=== PATIENT | male | born 1990 | race African-American/Black ===

== ENCOUNTER 2017-12-05 20:35 | Emergency (ER) | payer SELFPAY ==
[~2017-12-05] VITALS: Ht 188 cm; Wt 105.0 kg
[2017-12-05 20:37] VITALS: BP 166/94; PULSE 80; RESP 16; TEMP 97.8; O2SAT 100
[2017-12-05] MEDS ORDERED: SODIUM CHLOR 0.9% 1000 ML INJ 1,000 ML IV ONE ×2 (21:15)
[2017-12-05 21:26] LABS: AUTOMATED NEUTROPHIL # 1.6 TH/MM3 (1.8-7.7); BASOPHIL % 0.4 % (0.0-2.0); EOSINOPHIL # 0.1 TH/MM3 (0-0.4); EOSINOPHIL % 0.9 % (0.0-4.0); HEMATOCRIT 43.2 % (39.0-51.0); HEMOGLOBIN 15.4 GM/DL (13.0-17.0); LYMPHOCYTE # 3.3 TH/MM3 (1.0-4.8); MEAN CELL VOLUME 89.3 FL (80.0-100.0); MEAN CORPUSCULAR HEMOGLOBIN 31.8 PG (27.0-34.0); MEAN CORPUSCULAR HGB CONC 35.6 % (32.0-36.0); MEAN PLATELET VOLUME 9.3 FL (7.0-11.0); MONO % 10.3 % (0.0-8.0); MONOCYTE # 0.6 TH/MM3 (0-0.9); NEUT % 28.4 % (16.0-70.0); PLATELET COUNT 280 TH/MM3 (150-450); RED BLOOD COUNT 4.84 MIL/MM3 (4.50-5.90); RED CELL DISTRIBUTION WIDTH 14.7 % (11.6-17.2); WHITE BLOOD COUNT 5.6 TH/MM3 (4.0-11.0)
--- NOTE | 2017-12-05 21:27 | PD ---
HPI Chief Complaint: Dizziness Time Seen by Provider: 20:52 Travel History International Travel<30 days: No Contact w/Intl Traveler<30days: No Traveled to known affect area: No History of Present Illness HPI Is a 27-year-old man presents emerged from complaining that he gets lightheaded dizzy and weak anytime he goes in the center she. Is been ongoing problem since he was young but has been worse since he is gotten older. States he came today because he felt too weak to continue riding his bike to work. States he tries to drink Gatorade but they get sick and throws it up. No acute change recently. He does have some dark-colored no family history of significant medical problems. Patient only medical history is asthma. History Past Medical History Narrative Medical Asthma Tetanus Vaccination: > 5 Years Influenza Vaccination: No Social History Alcohol Use: No Tobacco Use: Yes (2 CIG /DAY) Allergies-Medications (Allergen,Severity, Reaction): Coded Allergies: No Known Allergies (Verified Adverse Reaction, Unknown, 12/05/17) Reported Meds & Prescriptions Reported Meds & Active Scripts Active No Active Prescriptions or Reported Medications Review of Systems Except as stated in HPI: all other systems reviewed are Neg Physical Exam Narrative GENERAL: Well-appearing 27-year-old man, no acute distress. SKIN: Focused skin assessment warm/dry. HEAD: Atraumatic. Normocephalic. EYES: Pupils equal and round. No scleral icterus. No injection or drainage. ENT: No nasal bleeding or discharge. Mucous membranes pink and moist. NECK: Trachea midline. No JVD. CARDIOVASCULAR: Regular rate and rhythm. No murmur appreciated. RESPIRATORY: No accessory muscle use. Clear to auscultation. Breath sounds equal bilaterally. GASTROINTESTINAL: Abdomen soft, non-tender, nondistended. Hepatic and splenic margins not palpable. MUSCULOSKELETAL: No obvious deformities. No clubbing. No cyanosis. No edema. NEUROLOGICAL: Awake and alert. No obvious cranial nerve deficits. Motor grossly within normal limits. Normal speech. PSYCHIATRIC: Appropriate mood and affect; insight and judgment normal. Data Data Last Documented VS Vital Signs Date Time Temp Pulse Resp B/P (MAP) Pulse Ox O2 Delivery O2 Flow Rate FiO2 12/05/17 20:37 97.8 80 16 166/94 (118) 100 Orders Orders Complete Blood Count With Diff (12/05/17 21:01) Comprehensive Metabolic Panel (12/05/17 21:01) Creatine Kinase (Cpk) (12/05/17 21:01) Urinalysis - C+S If Indicated (12/05/17 21:01) Iv Access Insert/Monitor (12/05/17 21:01) Sodium Chlor 0.9% 1000 Ml Inj (Ns 1000 M (12/05/17 21:15) Sodium Chlor 0.9% 1000 Ml Inj (Ns 1000 M (12/05/17 21:15) CKMB (12/05/17 21:00) CKMB% (12/05/17 21:00) Labs Laboratory Tests Test 12/05/17 21:00 White Blood Count 5.6 TH/MM3 Red Blood Count 4.84 MIL/MM3 Hemoglobin 15.4 GM/DL Hematocrit 43.2 % Mean Corpuscular Volume 89.3 FL Mean Corpuscular Hemoglobin 31.8 PG Mean Corpuscular Hemoglobin Concent 35.6 % Red Cell Distribution Width 14.7 % Platelet Count 280 TH/MM3 Mean Platelet Volume 9.3 FL Neutrophils (%) (Auto) 28.4 % Lymphocytes (%) (Auto) 60.0 % Monocytes (%) (Auto) 10.3 % Eosinophils (%) (Auto) 0.9 % Basophils (%) (Auto) 0.4 % Neutrophils # (Auto) 1.6 TH/MM3 Lymphocytes # (Auto) 3.3 TH/MM3 Monocytes # (Auto) 0.6 TH/MM3 Eosinophils # (Auto) 0.1 TH/MM3 Basophils # (Auto) 0.0 TH/MM3 CBC Comment AUTO DIFF Differential Comment AUTO DIFF CONFIRMED Urine Color [place]ita Urine Turbidity HAZY Urine pH 6.0 Urine Specific [place] 1.034 Urine Protein 30 mg/dL Urine Glucose (UA) NEG mg/dL Urine Ketones TRACE mg/dL Urine Occult Blood NEG Urine Nitrite NEG Urine Bilirubin NEG Urine Urobilinogen 4.0 OR GREATER mg/dL Urine Leukocyte Esterase NEG Urine RBC 1 /hpf Urine WBC 1 /hpf Urine Squamous Epithelial Cells <1 /hpf Urine Mucus MANY /lpf Urine Sperm RARE Microscopic Urinalysis Comment CULT NOT INDICATED Blood Urea Nitrogen 12 MG/DL Creatinine 0.92 MG/DL Random Glucose 84 MG/DL Total Protein 8.7 GM/DL Albumin 4.1 GM/DL Calcium Level 9.5 MG/DL Alkaline Phosphatase 120 U/L Aspartate Amino Transf (AST/SGOT) 31 U/L Alanine Aminotransferase (ALT/SGPT) 39 U/L Total Bilirubin 0.5 MG/DL Sodium Level 139 MEQ/L Potassium Level 3.7 MEQ/L Chloride Level 105 MEQ/L Carbon Dioxide Level 22.5 MEQ/L Anion Gap 12 MEQ/L Estimat Glomerular Filtration Rate 121 ML/MIN Total Creatine Kinase 363 U/L Creatine Kinase MB 3.1 NG/ML Creatine Kinase MB % 0.9 % MDM Medical Decision Making Medical Screen Exam Complete: Yes Emergency Medical Condition: Yes Interpretation(s) LABS: CBC is unremarkable. CPK minimally elevated. UA is concentrated. Differential Diagnosis Heat exhaustion, dehydration, rhabdomyolysis, metabolic disorder, other Narrative Course Medical decision making 27-year-old man who presents to the emergency department complaining of weakness , especially with the heat. Likely this is dehydration. Some dark colored urine. We will check a CPK. Some kind of metabolic disorder and border metabolism seems unlikely. We will give some IV fluids. Reassess. Diagnosis Primary Impression: Heat exhaustion Additional Impression: Dehydration Additional Instructions: Drink plenty fluids stay well-hydrated. Avoid overexertion in the heat. Return to the emergency department for any new or worsening symptoms. Med/Other Pt SpecificInfo: No Change to Meds Scripts No Active Prescriptions or Reported Meds Disposition: 01 DISCHARGE HOME Condition: Stable Robert Mckenna MD Dec 05, 2017 21:27
[2017-12-05 21:40] LABS: ALBUMIN 4.1 GM/DL (3.4-5.0); ALT (GPT) 39 U/L (12-78); AST (GOT) 31 U/L (15-37); BICARBONATE 22.5 MEQ/L (21.0-32.0); BLOOD UREA NITROGEN 12 MG/DL (7-18); CALCIUM 9.5 MG/DL (8.5-10.1); CHLORIDE 105 MEQ/L (98-107); CREATININE 0.92 MG/DL (0.60-1.30); GLOMERULAR FILTRATION RATE 121 ML/MIN (>89); GLUCOSE,RANDOM 84 MG/DL (74-106); SODIUM (NA) 139 MEQ/L (136-145)
[2017-12-05 21:43] LABS: ALKALINE PHOSPHATASE 120 U/L (45-117); TOTAL BILIRUBIN ADULT 0.5 MG/DL (0.2-1.0); TOTAL PROTEIN 8.7 GM/DL (6.4-8.2)
[2017-12-05 21:56] LABS: BILIRUBIN, URINE NEG (NEG); BLOOD, URINE NEG (NEG); GLUCOSE,URINE NEG (NEG); KETONE, URINE TRACE mg/dL (NEG); MUCUS URINE MANY /lpf (OCC); NITRITE,URINE NEG (NEG); SPERM, URINE RARE; SQUAMOUS EPITHELIAL CELL URINE <1 /hpf (0-5); URINE COLOR Amber (YELLW/STRAW); URINE LEUKOCYTE ESTERASE NEG (NEG)
== END 2017-12-05 23:15 | disposition home or self-care (01) ==
LOC: NEPE 20:35
DX: T67.5XXA Heat exhaustion, unspecified, initial encounter (principal); E86.0 Dehydration; R53.1 Weakness; R82.99 Other abnormal findings in urine; Z72.0 Tobacco use; Z87.09 Personal history of other diseases of the respiratory system; X30.XXXA Exposure to excessive natural heat, initial encounter
CPT/HCPCS: 80053; 81001; 82550; 82552; 85025; 99284; J7030

== ENCOUNTER 2018-04-18 00:48 | Inpatient (IN) ==
[2018-04-18] MEDS ORDERED: Vancomycin Inj 2,000 MG in Sodium Chlor 0.9% Inj 500 ML IV.SIG ONE (01:01)
[2018-04-18] MEDS ORDERED: Tetanus/Diphtheria Toxoid Adult Vaccine Inj 0.5 ML Vial IM ONE (01:01)
[2018-04-18] MEDS ORDERED: Sod Chloride 0.9% Inj 1,000 ML IV.SIG SCH (01:15)
[2018-04-18] MEDS ORDERED: Piperacil/Tazo 4.5 GM Premix 4.5 GM/100 ML BAG IV.SIG SCH (01:15)
[2018-04-18 01:29] LABS: Baso % (Auto) 0.3 % (0.0-2.0); Eos # (Auto) 0.1 th/mm3 (0.0-0.4); Eos % (Auto) 1.2 % (0.0-4.0); Hematocrit 41.9 % (39.0-51.0); Hemoglobin 14.1 gm/dL (13.0-17.0); Lymph # (Auto) 3.8 th/mm3 (1.0-4.8); Lymph % (Auto) 56.3 % (9.0-44.0); Mean Corpuscular HGB Conc 33.7 % (32.0-36.0); Mean Corpuscular Hemoglobin 30.6 pg (27.0-34.0); Mean Corpuscular Volume 90.8 fL (80.0-100.0); Mean Platelet Volume 8.2 fL (7.0-11.0); Mono # (Auto) 0.6 th/mm3 (0.0-0.9); Mono % (Auto) 8.5 % (0.0-8.0); Neut # (Auto) 2.3 th/mm3 (1.8-7.7); Neut % (Auto) 33.7 % (16.0-70.0); Platelet Count 308 th/mm3 (150-450); Red Blood Count 4.61 mil/mm3 (4.50-5.90); Red Cell Distribution Width 14.5 % (11.6-17.2); White Blood Count 6.7 th/mm3 (4.0-11.0)
[2018-04-18 01:41] LABS: Anion Gap 8 meq/L (5-15); Blood Urea Nitrogen 9 mg/dL (7-18); Calcium 8.6 mg/dL (8.5-10.1); Carbon Dioxide 26.4 meq/L (21.0-32.0); Chloride 107 meq/L (98-107); Glomerular Filtration Rate Greater Than 89 mL/min (>89); Glucose,Random 95 mg/dL (74-106); Potassium 3.9 meq/L (3.5-5.1); Sodium 141 meq/L (136-145)
--- NOTE | 2018-04-18 01:49 | XR ---
EXAM DATE: 04/18/2018 1:41 AM EST AGE/SEX: 27 years / Male INDICATIONS: Left hand, third digit pain after cutting finger two weeks ago. Redness and inflammatio n are present. CLINICAL DATA: This is the patient's initial encounter. Patient reports that signs and symptoms have been present for 2 weeks and indicates a pain score of 7/10. MEDICAL/SURGICAL HISTORY: . Smoker. None. COMPARISON: [facility]PO, HAND LEFT COMPLETE ([id number]), 06/29/2015. . FINDINGS: There is permeative destructive change involving the distal aspect of the third finger middle phalanx most consistent with osteomyelitis. There is diffuse soft tissue swelling involving the finger. CONCLUSION: Osteomyelitis involving the third finger middle phalanx Electronically signed by: Rufino Martinez MD 04/18/2018 1:47 AM EST
[2018-04-18] MEDS ORDERED: Vancomycin Consult Pharmacy OTHER PRN (01:52)
[2018-04-18] MEDS ORDERED: Bisacodyl 10 MG Supp RECTAL PRN (01:52)
--- NOTE | 2018-04-18 01:55 | ED ---
HPI General Chief Complaint: Extremity Injury, Upper Stated Complaint: finger complaint Time Seen by Provider: 04/18/18 00:58 Source: patient Mode of arrival: ambulatory Limitations: no limitations History of Present Illness HPI narrative: 27-year-old right-hand dominant black male presents emergency department with complaints of an infection of his left middle finger after cutting it with a knife 2 weeks ago. He states he was using a knife to cut with and accidentally cut the top of his finger. He was unable to extend his finger at the DIP joint. The wound healed over and he continued unable to list of his finger. Over the last week it has become strongly painful, red, swollen and started draining pus out of the wound. Patient has not had a tetanus shot over 5 years. He denies any loss of sensation. He denies any fever or chills. No nausea or vomiting. Exacerbated by his wound. No alleviating factors. Related Data Home Medications Medication Instructions Recorded Confirmed No Known Home Medications 04/18/18 04/18/18 Allergies Allergy/AdvReac Type Severity Reaction Status Date / Time No Known Allergies Allergy Verified 04/18/18 00:50 Review of Systems ROS: all other systems reviewed are negative [facility] Medical History Medical History Patient denies medical problems (Acute) Surgical History Surgical History History of arthroplasty of right ankle (Acute) History of right knee surgery (Acute) Family History Family History Father Cancer Mother Medication overdose Social History Social History Substance History: No History of Abuse Second Hand Smoke Exposure: Yes Smoking Status: Former smoker Tobacco Type: Cigarettes How Often Do You Have a Drink Containing Alcohol: Monthly or less Recent Travel in [facility] within the Last 8 Weeks: No Recent Out of Country Travel within the Last 8 Weeks: No Immunization History Tetanus Immunization: Unsure Exam Narrative Exam Narrative: GENERAL: Well-developed, well-nourished in no apparent distress. Nontoxic appearing. HEAD: Normocephalic, atraumatic. EYES: Pupils equal round and reactive. Extraocular motions intact. No scleral icterus. No injection or drainage. ENT: Nose clear. Throat without erythema, tonsillar hypertrophy or exudate. Uvula midline. Airway patent. NECK: Trachea midline. Supple, nontender, moves head freely. No central bony tenderness or spasm. CARDIOVASCULAR: Regular rate and rhythm without murmurs, gallops, or rubs. RESPIRATORY: Clear to auscultation. Breath sounds equal bilaterally. No wheezes , rales, or rhonchi. GASTROINTESTINAL: Abdomen soft, non-tender, nondistended. No hepato-splenomegaly , or palpable masses. No guarding. EXTREMITIES: Examination of the left hand reveals swelling from the mid phalanx down into the distal phalanx with a laceration over the dorsum of the DIP joint. There is purulent pus draining. The finger is erythematous warm and tender. He has a mallet deformity unable to extend at the DIP. He has intact sensation with intact cap refill. No pain or swelling at the MCP or MCP. Radial head is unremarkable. The right upper extremity as well as lower extremities are unremarkable. BACK: Nontender without deformity. No flank tenderness. NEUROLOGICAL: Awake, alert and oriented x 3 .Cranial nerves grossly intact. Motor and sensory grossly within normal limits. Normal speech. Course Initial Documented Vital Signs Temperature 98.4 F 04/18/18 00:50 Pulse Rate 65 04/18/18 00:50 Respiratory Rate 16 04/18/18 00:50 Blood Pressure 137/78 04/18/18 00:50 Pulse Oximetry 99 04/18/18 00:50 Last Documented Vital Signs Temperature 96.5 F L 04/18/18 14:15 Pulse Rate 54 L 04/18/18 18:10 Respiratory Rate 16 04/18/18 18:10 Blood Pressure 122/61 04/18/18 18:10 Pulse Oximetry 100 04/18/18 18:10 Medical Decision Making MDM Narrative Medical decision making narrative: IV access is obtained. Patient is given tetanus immunization. Liter bolus of normal saline. Vancomycin 2 g IV, and Zosyn 4.5 g IV. X-ray of the finger. Laboratory tests are reviewed. X-rays show bony erosion from a septic joint. I have spoke with Dr. Singh who is agreed to admit the patient. I have contacted Dr. Montiel in regards to this patient's admission for his consult. Medical Screen Exam Complete: Yes Emergency Medical Condition: Yes Differential Diagnosis Differential Diagnosis: MDM: High Differential diagnoses: Fracture, sprain, strain, dislocation, contusion, neurovascular injury, septic joint Lab Data Result diagrams: 04/18/18 01:10 04/18/18 01:10 Lab Results 04/18/18 04/18/18 Range/Units 01:10 01:10 WBC 6.7 (4.0-11.0) th/mm3 RBC 4.61 (4.50-5.90) mil/mm3 Hgb 14.1 (13.0-17.0) gm/dL Hct 41.9 (39.0-51.0) % MCV 90.8 (80.0-100.0) fL MCH 30.6 (27.0-34.0) pg MCHC 33.7 (32.0-36.0) % RDW 14.5 (11.6-17.2) % Plt Count 308 (150-450) th/mm3 MPV 8.2 (7.0-11.0) fL Neut % (Auto) 33.7 (16.0-70.0) % Lymph % (Auto) 56.3 H (9.0-44.0) % [place] % (Auto) 8.5 H (0.0-8.0) % Eos % (Auto) 1.2 (0.0-4.0) % Baso % (Auto) 0.3 (0.0-2.0) % Neut # (Auto) 2.3 (1.8-7.7) th/mm3 Lymph # (Auto) 3.8 (1.0-4.8) th/mm3 [place] # (Auto) 0.6 (0.0-0.9) th/mm3 Eos # (Auto) 0.1 (0.0-0.4) th/mm3 Baso # (Auto) 0.0 (0.0-0.2) th/mm3 WBC Differential . Differential Comment Auto diff final Sodium 141 (136-145) meq/L Potassium 3.9 (3.5-5.1) meq/L Chloride 107 (98-107) meq/L Carbon Dioxide 26.4 (21.0-32.0) meq/L Anion Gap 8 (5-15) meq/L BUN 9 (7-18) mg/dL Creatinine 0.86 (0.60-1.30) mg/dL Estimated GFR Greater than 89 (>89) mL/min Random Glucose 95 (74-106) mg/dL Calcium 8.6 (8.5-10.1) mg/dL Imaging Data Radiologist's impression: Finger X-Ray 04/18/18 01:01 CONCLUSION: Osteomyelitis involving the third finger middle phalanx Discharge Plan Discharge Disposition Patient Disposition: 30 Still Patient Discharge Condition Condition: Stable Physicians Team ED Provider: Elida Alcantara ED Midlevel Provider: Raffi Carmona Primary Care Provider: Primary Care Sari Mueller Attending Provider: Jd Abreu Other Providers: Britney Hollingsworth ; Natalio Gresham ; Therese Uribe Status ED Status: Left Department Discharge Information Discharge Date/Time: 04/18/18 04:04
--- NOTE | 2018-04-18 02:57 | P.HPIM ---
History of Present Illness Primary Care Physician: No Primary Care Physician History of Present Illness: 27-year-old male presents with progressively worsening, severe and constant left third finger pain, swelling, erythema following an knife injury while cutting down a branch of a [place] 2 weeks ago. Patient denies any fevers, chills, chest pain, shortness of breath. Says he is otherwise feeling all right. Inpatient Certification: I certify that the inpatient services were ordered in accordance with Medicare regulations governing the order. This includes certification that hospital inpatient services are reasonable and necessary and in the case of services not specified as inpatient-only under 42 CFR 419.22(n), that they are appropriately provided as inpatient services in accordance to with the 2-midnight benchmark under 43 CFR 412.3(e) Estimated Total Length of Stay (Days): 4 Plans for Post Hospital Care: Home Review of Systems All other systems reviewed negative except as stated in HPI PMFSH - History History Provided By: Patient - Medical History Medical History: Medical History (Last Reviewed 04/18/18 @ 02:52 by Darell Singh MD) Patient denies medical problems - Surgical History Surgical History: Surgical History (Last Reviewed 04/18/18 @ 02:52 by Darell Singh MD) History of arthroplasty of right ankle History of right knee surgery - Family History Family History: Family History (Last Updated 04/18/18 @ 02:53 by Darell Singh MD) Father Cancer Mother Medication overdose - Social History I have reviewed the patient's Social History: Yes - Tobacco History Second Hand Smoke Exposure: Yes Tobacco Use In Past 30 Days: Yes Smoking Status: Current every day smoker Tobacco Type: Cigarettes - Alcohol History How Often Do You Have a Drink Containing Alcohol: 2 to 4 times a month - Substance Use History Substance History: No History of Abuse - Travel History Recent Travel in the [place] Within the Last 8 Weeks: No Recent Travel Out of the Country Within the Last 8 Weeks: No - Immunization History Tetanus Immunization: Unsure Medications and Allergies Active Medications: Active Medications Al Hydroxide/Mg Hydroxide (Milk Of Magnesia Liq) 30 ml PO Q12H PRN PRN Reason: Mild Constipation Bisacodyl (Dulcolax Supp) 10 mg RECTAL DAILY PRN PRN Reason: SEVERE CONSITIPATION Vancomycin HCl 2,000 mg/ (Sodium Chloride) 520 mls @ 250 mls/hr IV.SIG ONCE ONE Stop: 04/18/18 03:08 Last Admin: 04/18/18 02:15 Dose: 250 mls/hr Sodium Chloride (Ns Inj) 1,000 mls @ 100 mls/hr IV.CONT .Q10H INGRID Piperacillin/Tazobactam/Dextrose (Zosyn 4.5 Gm Premix) 4.5 gm in 100 mls @ 200 mls/hr IV.SIG Q6H INGRID Vancomycin HCl 1,500 mg/ (Sodium Chloride) 515 mls @ 250 mls/hr IV.SIG Q8H INGRID Lactulose (Lactulose Liq) 30 ml PO DAILY PRN PRN Reason: SEVERE CONSITIPATION Miscellaneous Information ([facility] Ordered Lab Info) 1 each OTHER ONCE ONE Stop: 04/19/18 09:46 Pharmacy Profile Note (Vancomycin Consult Pharmacy) 1 each OTHER UNSCH PRN PRN Reason: Pharmacy to dose Sennosides (Senokot) 17.2 mg PO Q12H PRN PRN Reason: Moderate Constipation Sodium Chloride (Ns Flush) 2 ml IV.FLUSH PRN PRN PRN Reason: FLUSH AFTER USING IV ACCESS Allergies Allergy/AdvReac Type Severity Reaction Status Date / Time No Known Allergies Allergy Verified 04/18/18 00:50 Home Medications Medication Instructions Recorded Confirmed Type No Known Home Medications 04/18/18 04/18/18 History Exam Vital signs: Vital Signs 04/18/18 00:50 Temperature 98.4 F Pulse Rate 65 Respiratory Rate 16 Blood Pressure 137/78 Pulse Oximetry 99 Intake & Output 04/17/18 04/17/18 04/18/18 06:59 18:59 06:59 Intake Total 100 / 100 Balance 100 / 100 Weight 117.934 kg Intake: IV 100 / 100 Zosyn 4.5 GM Premix 4.5 gm In 100 / 100 100 ml @ 200 mls/hr IV.SIG Q6H INGRID Rx#:[id number] Narrative: GENERAL: Patient sitting up in bed. Appears comfortable. Alert and oriented x3. SKIN: Warm and dry. HEAD: Atraumatic. Normocephalic. EYES: Pupils equal and round. No scleral icterus. No injection or drainage. ENT: No nasal bleeding or discharge. Mucous membranes pink and moist. NECK: Trachea midline. No JVD. CARDIOVASCULAR: Regular rate and rhythm. RESPIRATORY: No accessory muscle use. Clear to auscultation. Breath sounds equal bilaterally. GASTROINTESTINAL: Abdomen soft, non-tender, nondistended. Hepatic and splenic margins not palpable. MUSCULOSKELETAL: Extremities without clubbing, cyanosis, or edema. No obvious deformities. NEUROLOGICAL: Awake and alert. No obvious cranial nerve deficits. Motor grossly within normal limits. Five out of 5 muscle strength in the arms and legs. Left third finger dressed with dressing clean dry and intact. Normal speech. PSYCHIATRIC: Appropriate mood and affect; insight and judgment normal. Results - Labs CBC & Chem 7: 04/18/18 01:10 04/18/18 01:10 Labs: Short CBC 04/18/18 Range/Units 01:10 WBC 6.7 (4.0-11.0) th/mm3 Hgb 14.1 (13.0-17.0) gm/dL Hct 41.9 (39.0-51.0) % Plt Count 308 (150-450) th/mm3 BMP 04/18/18 01:10 Sodium 141 Potassium 3.9 Chloride 107 Carbon Dioxide 26.4 BUN 9 Creatinine 0.86 Calcium 8.6 - Imaging Impressions Finger X-Ray 04/18/18 01:01 CONCLUSION: Osteomyelitis involving the third finger middle phalanx Caprini VTE Risk Assessment Caprini VTE Risk Assessment: No/Low Risk (score <= 1) Caprini Risk Assessment Model: Point Value = 1 Point Value = 2 Point Value = 3 Point Value = 5 Age 41-60 Minor surgery BMI > 25 kg/m2 Swollen legs Varicose veins or History of unexplained or recurrent spontaneous Oral contraceptives or hormone replacement Sepsis (< 1 month) Serious lung disease, including pneumonia (< 1 month) Abnormal pulmonary function Acute myocardial infarction Congestive heart failure (< 1 month) History of inflammatory bowel disease Medical patient at bed rest Age 61-74 Arthroscopic surgery Major open surgery (> 45 min) Laparoscopic surgery (> 45 min) Malignancy Confined to bed (> 72 hours) Immobilizing plaster cast Central venous access Age >= 75 History of VTE Family history of VTE Factor V Leiden Prothrombin [id number] Lupus anticoagulant Anticardiolipin antibodies Elevated serum homocysteine Heparin-induced thrombocytopenia Other congenital or acquired thrombophilia Stroke (< 1 month) Elective arthroplasty Hip, pelvis, or leg fracture Acute spinal cord injury (< 1 month) Prophylaxis Regimen: Total Risk Factor Score Risk Level Prophylaxis Regimen 0-1 Low Early ambulation 2 Moderate Order ONE of the following: *Sequential Compression Device (SCD) *Heparin 5000 units SQ BID 3-4 Higher Order ONE of the following medications: *Heparin 5000 units SQ TID *Enoxaparin/Lovenox 40 mg SQ daily (WT < 150 kg, CrCl > 30 mL/min) *Enoxaparin/Lovenox 30 mg SQ daily (WT < 150 kg, CrCl > 10-29 mL/min) *Enoxaparin/Lovenox 30 mg SQ BID (WT < 150 kg, CrCl > 30 mL/min) AND/OR *Sequential Compression Device (SCD) 5 or more Highest Order ONE of the following medications: *Heparin 5000 units SQ TID (Preferred with Epidurals) *Enoxaparin/Lovenox 40 mg SQ daily (WT < 150 kg, CrCl > 30 mL/min) *Enoxaparin/Lovenox 30 mg SQ daily (WT < 150 kg, CrCl > 10-29 mL/min) *Enoxaparin/Lovenox 30 mg SQ BID (WT < 150 kg, CrCl > 30 mL/min) AND *Sequential Compression Device (SCD) Assessment and Plan - Plan Acute left third finger osteomyelitis -Left hand x-ray personally visualized with left third finger DIP erosion. Broad-spectrum antibiotics ordered. Hand surgery consulted. Tobacco abuse. Cessation counseling provided. Discussed Condition With: Patient, nurse, ED physician
[2018-04-18] MEDS: Sod Chloride 0.9% Inj 1,000 ML IV.CONT SCH ×3 (04:26→22:34)
[2018-04-18] MEDS: Piperacil/Tazo 4.5 GM Premix 4.5 GM/100 ML BAG IV.SIG SCH ×3 (07:49→22:35)
[2018-04-18] MEDS: Vancomycin Inj 1,500 MG in Sodium Chlor 0.9% Inj 500 ML IV.SIG SCH ×2 (11:16→22:35)
--- NOTE | 2018-04-18 11:47 | MB ---
cc: Britney Hollingsworth MD DATE: 04/18/2018 The patient is being seen at the request of Dr. Darell Singh. REASON FOR CONSULTATION: Infection of the left third finger. HISTORY OF PRESENT ILLNESS: The patient is a 27-year-old male who notes that he was cutting a branch of a tree with a pocket knife approximately 2 weeks ago. The blade closed on his finger. He sustained a laceration. The patient did not seek any treatment until early this morning when it was noted that he was having pain and drainage from the DIP joint area of the left third finger dorsally. X-ray at that time revealed evidence of significant bony destruction. The patient was admitted with a diagnosis of osteomyelitis. Consultation is requested regarding evaluation and treatment of the patient's finger. PAST MEDICAL HISTORY: The patient denies high blood pressure, diabetes, heart disease, kidney disease, liver disease or diseases of infectious etiology. PAST SURGICAL HISTORY: The patient had an arthroplasty of his right ankle. He had right knee surgery. FAMILY HISTORY: Significant for cancer in his father and his mother had a medication overdose. SOCIAL HISTORY: The patient smokes everyday cigarettes. He consumes alcohol occasionally. Denies drug use or abuse. PHYSICAL EXAMINATION: GENERAL: The patient is lying comfortably in bed. VITAL SIGNS: His temperature is 97.8, respirations are 16, pulse of 61. His blood pressure is 138/74 with a pulse oximetry of 100 on room air. HEENT: His extraocular muscles are intact. His pupils are equal, round and reactive to light. His mouth is clear. NECK: Supple without masses. LUNGS: Clear. HEART: Has a regular rate and rhythm. EXTREMITIES: Examination of the upper extremities reveals an open wound draining from the dorsal aspect of his left third finger. There was swelling proximally and distally with some redness present. LABORATORY DATA: White count on admission was 6.7 with elevated lymphocytes and monocytes, but neutrophils are within normal limits. MICROBIOLOGY: The patient had a culture and Gram stain, which is pending. The Gram stain showed few white blood cells, but no organisms. The review of the x-ray does show bony destruction of the neck and head of the middle phalanx of his left third finger. IMPRESSION: The patient has osteomyelitis of the left third finger, middle phalanx. PLAN: The patient will be taken to the operating room where the wound will be opened. Additionally, as necessary, the infected bone will be removed and wound packed. The patient is advised that he may need additional surgery in the future in order to reconstruct the middle phalanx of the finger. He is also advised that he may need prolonged intravenous antibiotics. The patient understands and accepts the risks and complications of the surgery. MD TYRESE Gongora//ashley , 11:08 AM , 11:18 AM
[2018-04-18] MEDS ORDERED: Chlorhexidine Gluconate 2% 1 Pack (2 Cloths) TOPICAL ONE (11:49)
[2018-04-18] MEDS ORDERED: Metoprolol Tartrate 25 MG Tablet PO ONE (11:49)
[2018-04-18] MEDS ORDERED: Sodium Chlor 0.9% Inj 500 ML IV.SIG ONE (12:00)
[2018-04-18] MEDS ORDERED: Ketorolac Inj 30 MG/ML (IVP) Vial IV.PUSH ONE (12:56)
[2018-04-18] MEDS ORDERED: Lidocaine PF 1% Inj 5 ML Syringe OTHER ONE (12:56)
[2018-04-18] MEDS ORDERED: Glycopyrrolate Inj 1 MG/5 ML Syringe IV.PUSH ONE (12:56)
[2018-04-18] MEDS ORDERED: Phenylephrine/NS 1000 MCG/10ML Syringe IV.PUSH ONE (12:56)
[2018-04-18] MEDS ORDERED: Bupivacaine PF 0.25% Inj 30 ML Vial ONE (13:00)
--- NOTE | 2018-04-18 14:14 | P.BOP ---
- Preoperative Diagnosis (1) Osteomyelitis of finger of left hand - Postoperative Diagnosis (1) Osteomyelitis of finger of left hand Date of procedure: 04/18/18 Procedure: Excisional debridement of bone of the left middle finger for osteomyelitis Anesthesia: MAC Surgeon: Britney Hollingsworth MD Estimated blood loss (mL): 10 Tourniquet time (min): 28 (Sterile glove finger) Pathology: other (bone of the left middle phalanx) Condition: stable Disposition: PACU
[2018-04-18] MEDS ORDERED: fentaNYL Citrate Inj 100 MCG/2 ML Ampul ONE (14:21)
[2018-04-18] MEDS ORDERED: Famotidine PF Inj 20 MG/2 ML Vial ONE (14:22)
--- NOTE | 2018-04-18 15:20 | MP ---
cc: Britney Hollingsworth MD DATE OF OPERATION: 04/18/2018 PREOPERATIVE DIAGNOSIS: Osteomyelitis of the middle phalanx of the left third finger. POSTOPERATIVE DIAGNOSIS: Osteomyelitis of the middle phalanx of the left third finger. PROCEDURE PERFORMED: Incision and debridement of the skin, subcutaneous tissue, and bone with excisional debridement of the bone of the left middle finger. ANESTHESIA: General. SURGEON: Britney Hollingsworth MD INDICATIONS: A 27-year-old male with injury to his left middle finger, 2 weeks ago. The patient did not seek medical attention. He apparently was cutting a branch from a tree and the blade closed on his finger. The patient was noted to have complete destruction of the head of the middle phalanx of his left third finger. At the completion of the procedure, all of the bone, which apparently had been involved was removed. TOURNIQUET TIME: 28 minutes. DESCRIPTION OF PROCEDURE: The patient was seen preoperatively, where the site and side were identified and marked. The patient was then taken to the operating room and placed in a supine position. His identity was checked against the armband and consent form signed, and site confirmed. Timeout called prior to beginning the procedure. The left upper extremity was prepped with Hibiclens and draped in the usual sterile fashion. The finger was tourniqueted by using a sterile finger from a sterile glove, which was placed on the finger and rolled up. A #15 blade was then used to make an excision of all the infected tissue at the edges of the wound. The wound did traverse the DIP joint. Once the skin was removed, it was noted that the extensor tendon was completely destroyed in that area. Bits of bone fragments were present and these were removed, some was sent for pathology, some was sent for culture. Under loupe magnification, the soft tissue, ligaments, and bone, which were grossly infected were removed. The shaft of the middle phalanx was debrided of any type of infected material. Once the bone was strong and there was no evidence of visceral involvement, and all of the soft tissue which was involvement was removed, the wound was copiously irrigated with saline. The flexor tendon to the distal phalanx was intact. Both collateral ligaments appeared to have been destroyed and the finger is totally destabilized distal to the shaft of the middle phalanx. After copious irrigation, the wound was packed with 1/2 inch iodoform packing along with Telfa, Adaptic, straight Betadine, and a dry dressing. A palmarly-based splint from the fingertips to the mid forearm was placed in the position of function. Bupivacaine 0.25% plain was injected at the beginning of the procedure, 9 mL were used. Once the dressing was then placed and the splint had hardened, the patient was taken from the operating room to the recovery room in satisfactory condition, having tolerated the procedure well. MD TYRESE Gongora/ehsan , 02:21 PM , 02:29 PM
--- NOTE | 2018-04-18 16:09 | P.PN ---
Subjective Interval history: Follow up for left 3rd finger osteomyelitis. Patient seen around 10am this morning prior to going to OR. He reports continued left 3rd finger pain, swelling, warmth, and yellow purulent drainage. He does get some relief with pain medication. Denies fevers/chills. Denies any lymphangitis up the wrist/ arm. He denies any chest pain or shortness of breath. Physical Exam Vital signs: Vital Signs 04/18/18 00:50 04/18/18 04:00 04/18/18 08:10 Temperature 98.4 F 97.5 F L 97.8 F Pulse Rate 65 64 61 Respiratory Rate 16 18 16 Blood Pressure 137/78 139/83 138/74 Pulse Oximetry 99 100 100 04/18/18 11:57 04/18/18 14:15 04/18/18 14:30 Temperature 98.1 F 96.5 F L Pulse Rate 56 L 88 62 Respiratory Rate 16 14 14 Blood Pressure 131/79 114/57 L 117/66 Pulse Oximetry 98 98 98 04/18/18 14:45 Temperature Pulse Rate 64 Respiratory Rate 18 Blood Pressure 138/76 Pulse Oximetry 99 Intake & Output 04/17/18 04/18/18 04/18/18 18:59 06:59 18:59 Intake Total 1620 / 1620 1100 / 1100 Output Total 5 / 5 Balance 1620 / 1620 1095 / 1095 Weight 117.934 kg Intake: IV 1620 / 1620 200 / 200 NS Inj 1,000 ML @ 100 mls/hr IV 100 / 100 .CONT .Q10H [facility] Rx#:[id number] Zosyn 4.5 GM Premix 4.5 gm In 100 / 100 100 / 100 100 ml @ 200 mls/hr IV.SIG Q6H [facility] Rx#:[id number] NS Inj 1,000 ML @ 1000 mls/hr 1000 / 1000 IV.SIG BOLUS [facility] Rx#:[id number] Vancomycin Inj 2,000 MG In NS 520 / 520 Inj 500 ML @ 250 mls/hr IV.SIG ONCE ONE Rx#:[id number] Anesthesia Amount 900 / 900 Output: Estimated Blood Loss 5 / 5 Other: # Voids 1 Date of Last Bowel Movement 04/17/18 Weight On Admission 117.934 kg Narrative: GENERAL: Well-nourished, well-developed pleasant young male patient in [facility]. SKIN: Warm and dry. No rash. HEENT: Normocephalic. Atraumatic. Pupils equal and round. Mucous membranes pink and moist. CARDIOVASCULAR: Regular rate and rhythm. No murmur appreciated. RESPIRATORY: No accessory muscle use. Clear to auscultation. Breath sounds equal bilaterally. GASTROINTESTINAL: Abdomen soft, non-tender, nondistended. Normoactive bowel sounds x4. MUSCULOSKELETAL: No obvious deformities. Extremities without clubbing, cyanosis , or edema. Left 3rd digit with open wound at doral DIP with purulent yellow drainage and subcutaneous tissue, with surrounding erythema/edema/warmth throughout the entire 3rd digit. Decreased ROM of left 3rd finger secondary to pain/swelling. NEUROLOGICAL: Awake and alert. No obvious cranial nerve deficits. Motor grossly within normal limits. Moving all extremities spontaneously. Normal speech. PSYCHIATRIC: Appropriate mood and affect; insight and judgment normal. Results - Labs CBC & Chem 7: 04/18/18 01:10 04/18/18 01:10 Laboratory Results - last 24 hr 04/18/18 04/18/18 01:10 01:10 WBC 6.7 RBC 4.61 Hgb 14.1 Hct 41.9 MCV 90.8 MCH 30.6 MCHC 33.7 RDW 14.5 Plt Count 308 MPV 8.2 Neut % (Auto) 33.7 Lymph % (Auto) 56.3 H [place] % (Auto) 8.5 H Eos % (Auto) 1.2 Baso % (Auto) 0.3 Neut # (Auto) 2.3 Lymph # (Auto) 3.8 [place] # (Auto) 0.6 Eos # (Auto) 0.1 Baso # (Auto) 0.0 WBC Differential . Differential Comment Auto diff final Sodium 141 Potassium 3.9 Chloride 107 Carbon Dioxide 26.4 Anion Gap 8 BUN 9 Creatinine 0.86 Estimated GFR Greater than 89 Random Glucose 95 Calcium 8.6 Microbiology 04/18/18 01:10 Wound - Finger Gram Stain - Final - Imaging Impressions Finger X-Ray 04/18/18 01:01 CONCLUSION: Osteomyelitis involving the third finger middle phalanx Assessment and Plan - Plan 27-year-old male with history of tobacco use, presents with a 2-week history of left third finger injury and worsening edema/warmth and drainage Acute left third finger osteomyelitis -Left 3rd finger x-ray reviewed and shows osteomyelitis involving the third finger middle phalanx -Continue on broad-spectrum antibiotics with IV Vanco/Zosyn -Hand surgery consulted, discussed with Dr. Hollingsworth, taking the patient to the OR today, then recommends ID consult -S/p I&D by Dr. Hollingsworth 04/18 -Wound cultures from OR collected and pending -Consult ID Tobacco abuse: chronic -Cessation counseling provided. Depression/Suicidal Ideations: acute, patient reportedly voiced suicidal ideations to nursing staff after admission -continue sitter -consult psychiatry DVT Prophylaxis: SCDs, ambulation Discharge Planning: Await antibiotic recommendations from infectious disease. Will need hand surgery and ID clearance prior to discharge.
--- NOTE | 2018-04-18 19:15 | ECG ---
Date Performed: 04/18/2018 Time Performed: 11:53:33 PTAGE: 27 years EKG: Baseline artifact present PROBABLE Normal Sinus rhythm EARLY REPOLARIZATION ABNORMAL RHYTHM ECG NO PREVIOUS TRACING DOCTOR: Eleuterio Clayton Interpretating Date/Time 04/18/2018 19:14:22
[2018-04-19] MEDS: Piperacil/Tazo 4.5 GM Premix 4.5 GM/100 ML BAG IV.SIG SCH ×4 (02:40→21:43)
[2018-04-19] MEDS: Vancomycin Inj 1,500 MG in Sodium Chlor 0.9% Inj 500 ML IV.SIG SCH ×3 (02:40→18:17)
[2018-04-19 07:34] LABS: Baso % (Auto) 0.2 % (0.0-2.0); Eos % (Auto) 0.1 % (0.0-4.0); Hematocrit 37.6 % (39.0-51.0); Lymph # (Auto) 2.6 th/mm3 (1.0-4.8); Lymph % (Auto) 24.2 % (9.0-44.0); Mean Corpuscular HGB Conc 34.6 % (32.0-36.0); Mean Corpuscular Hemoglobin 31.3 pg (27.0-34.0); Mean Corpuscular Volume 90.5 fL (80.0-100.0); Mean Platelet Volume 8.2 fL (7.0-11.0); Mono # (Auto) 0.9 th/mm3 (0.0-0.9); Mono % (Auto) 8.4 % (0.0-8.0); Neut # (Auto) 7.3 th/mm3 (1.8-7.7); Neut % (Auto) 67.1 % (16.0-70.0); Platelet Count 272 th/mm3 (150-450); Red Blood Count 4.15 mil/mm3 (4.50-5.90); Red Cell Distribution Width 14.2 % (11.6-17.2); White Blood Count 10.9 th/mm3 (4.0-11.0)
[2018-04-19 08:08] LABS: Albumin 2.9 g/dL (3.4-5.0); Anion Gap 8 meq/L (5-15); Aspartate Aminotransferase 15 U/L (15-37); Blood Urea Nitrogen 6 mg/dL (7-18); Calcium 8.3 mg/dL (8.5-10.1); Carbon Dioxide 25.5 meq/L (21.0-32.0); Chloride 110 meq/L (98-107); Glomerular Filtration Rate Greater Than 89 mL/min (>89); Glucose,Random 110 mg/dL (74-106); Potassium 3.7 meq/L (3.5-5.1); Sodium 143 meq/L (136-145)
[2018-04-19 08:09] LABS: Alanine Aminotransferase 19 U/L (12-78)
[2018-04-19 08:11] LABS: Alkaline Phosphatase 86 U/L (45-117); Total Protein 7.1 g/dL (6.4-8.2)
[2018-04-19] MEDS: Sod Chloride 0.9% Inj 1,000 ML IV.CONT SCH ×2 (08:39→21:43)
[2018-04-19] MEDS ORDERED: Pharmacy Ordered Lab Info OTHER ONE ×2 (09:45→17:45)
--- NOTE | 2018-04-19 10:11 | P.CONID ---
History of Present Illness Service: Infectious Disease Consult date: 04/19/18 Requesting Physician: Darell Singh Reason for Consult: Evaluate patient with osteomyelitis Primary Care Provider: No Primary Care Physician History of Present Illness: Patient seen and examined. Records reviewed. Patient is 27-year-old right-hand dominant black male presents emergency department with complaints of an infection of his left middle finger after cutting it with a knife 2 weeks ago. He states he was using a knife and accidentally cut the top of his left middle finger. The wound healed over and he was having trouble flexing the tip of that finger. Last week it started getting swollen and red, and the area where he had a cut started having some purulent drainage. He denies any fever chills or sweats. He has not had any other symptoms as far as GI or any urinary complaints. As per record his last tetanus shot was over 5 years ago. He has not seen any redness going up his arm. Since admission he has not been febrile. Evaluation revealed possible osteomyelitis. Patient was seen by hand surgery, and he underwent surgery and intraoperative findings are suggestive of osteomyelitis. Intraoperative cultures are currently pending. Patient is on Zosyn and vancomycin. Infectious disease consultation has been requested to assist with evaluation and treatment of his osteomyelitis. Review of Systems Constitutional: Denies chills, Denies fever(s), Denies night sweats Eyes: Denies discharge, Denies dry eyes Ears, Nose, Mouth, and Throat: Denies difficulty swallowing, Denies dry mouth, Denies nasal discharge, Denies pain with swallowing, Denies sore throat Cardiovascular: Denies chest pain, Denies shortness of breath Respiratory: Denies chest congestion, Denies cough, Denies shortness of breath Gastrointestinal: Denies abdominal pain, Denies loose stools, Denies nausea, Denies pain with swallowing, Denies vomiting Genitourinary: Denies difficulty urinating, Denies painful urination Musculoskeletal: Reports joint pain, Reports joint swelling, Denies numbness Skin/Breast: Denies rash, Denies sores, Denies wounds Neurologic: Denies headache(s) PMFSH - History History Provided By: Patient - Medical History Medical History: Medical History (Last Updated 04/19/18 @ 10:36 by Marjan Robles MD) Fracture of ankle Fracture of wrist Patient denies medical problems - Surgical History Surgical History: Surgical History (Last Updated 04/19/18 @ 10:36 by Marjan Robles MD) Status post ORIF of fracture of ankle History of right knee surgery - Family History Family History: Family History (Last Reviewed 04/19/18 @ 10:36 by Marjan Robles MD) Father Cancer Mother Medication overdose - Tobacco History Second Hand Smoke Exposure: Yes Tobacco Use In Past 30 Days: Yes Smoking Status: Former smoker Tobacco Type: Cigarettes - Alcohol History How Often Do You Have a Drink Containing Alcohol: Monthly or less - Substance Use History Substance History: No History of Abuse - Travel History Recent Travel in the [place] Within the Last 8 Weeks: No Recent Travel Out of the Country Within the Last 8 Weeks: No - Immunization History Tetanus Immunization: Unsure Hx Influenza Vaccine This Season: Yes Medications and Allergies Active Medications: Active Medications Al Hydroxide/Mg Hydroxide (Milk Of Magnesia Liq) 30 ml PO Q12H PRN PRN Reason: Mild Constipation Bisacodyl (Dulcolax Supp) 10 mg RECTAL DAILY PRN PRN Reason: SEVERE CONSITIPATION Sodium Chloride (Ns Inj) 1,000 mls @ 100 mls/hr IV.CONT .Q10H [facility] Last Admin: 04/19/18 08:39 Dose: Not Given Piperacillin/Tazobactam/Dextrose (Zosyn 4.5 Gm Premix) 4.5 gm in 100 mls @ 200 mls/hr IV.SIG Q6H [facility] Last Infusion: 04/19/18 09:12 Dose: Infused Vancomycin HCl 1,500 mg/ (Sodium Chloride) 515 mls @ 250 mls/hr IV.SIG Q8H [facility] Last Infusion: 04/19/18 04:31 Dose: Infused Lactated Ringer's (Lr 1000 Ml Inj) 1,000 mls @ 30 mls/hr IV.SIG .Q24H [facility] Stop: 04/19/18 11:59 Last Admin: 04/18/18 12:13 Dose: 30 mls/hr Lactulose (Lactulose Liq) 30 ml PO DAILY PRN PRN Reason: SEVERE CONSITIPATION Miscellaneous Information (Misc Nursing Information) 1 each OTHER UNSCH PRN PRN Reason: SEE LABEL COMMENTS Stop: 04/19/18 14:14 Pharmacy Profile Note (Vancomycin Consult Pharmacy) 1 each OTHER UNSCH PRN PRN Reason: Pharmacy to dose Sennosides (Senokot) 17.2 mg PO Q12H PRN PRN Reason: Moderate Constipation Sodium Chloride (Ns Flush) 2 ml IV.FLUSH PRN PRN PRN Reason: FLUSH AFTER USING IV ACCESS Allergies Allergy/AdvReac Type Severity Reaction Status Date / Time No Known Allergies Allergy Verified 04/18/18 00:50 Home Medications Medication Instructions Recorded Confirmed Type No Known Home Medications 04/18/18 04/18/18 History Exam Vital signs: Vital Signs 04/18/18 11:57 04/18/18 14:15 04/18/18 14:30 Temperature 98.1 F 96.5 F L Pulse Rate 56 L 88 62 Respiratory Rate 16 14 14 Blood Pressure 131/79 114/57 L 117/66 Pulse Oximetry 98 98 98 04/18/18 14:45 04/18/18 15:00 04/18/18 15:30 Temperature Pulse Rate 64 59 L 57 L Respiratory Rate 18 17 16 Blood Pressure 138/76 138/76 128/79 Pulse Oximetry 99 99 99 04/18/18 16:00 04/18/18 16:30 04/18/18 17:30 Temperature Pulse Rate 56 L 67 52 L Respiratory Rate 15 16 16 Blood Pressure 121/69 122/66 116/59 L Pulse Oximetry 99 99 99 04/18/18 18:10 04/18/18 20:00 04/19/18 00:00 Temperature 97.8 F 97.2 F L Pulse Rate 54 L 85 63 Respiratory Rate 16 19 18 Blood Pressure 122/61 143/68 H 130/66 Pulse Oximetry 100 99 96 04/19/18 08:00 Temperature 98 F Pulse Rate 60 Respiratory Rate 15 Blood Pressure 130/83 Pulse Oximetry 99 Intake & Output 04/18/18 04/19/18 04/19/18 18:59 06:59 18:59 Intake Total 2340 / 2340 3130 / 3130 100 / 100 Output Total 5 / 5 Balance 2335 / 2335 3130 / 3130 100 / 100 Weight 117.7 kg Intake: IV 1440 / 1440 2230 / 2230 100 / 100 NS Inj 1,000 ML @ 100 mls/hr IV 725 / 725 1000 / 1000 .CONT .Q10H [facility] Rx#:[id number] Zosyn 4.5 GM Premix 4.5 gm In 200 / 200 200 / 200 100 / 100 100 ml @ 200 mls/hr IV.SIG Q6H [facility] Rx#:[id number] Vancomycin Inj 1,500 MG In NS 515 / 515 1030 / 1030 Inj 500 ML @ 250 mls/hr IV.SIG Q8H [facility] Rx#:[id number] Oral 900 / 900 Anesthesia Amount 900 / 900 Output: Estimated Blood Loss 5 / 5 Other: # Voids 3 Narrative: Physical examination GENERAL: Patient is a well-nourished, well-developed male, awake and alert, not in respiratory distress. SKIN: Cool and dry. No generalized rash, no ecchymoses and no evidence of embolic lesions. HEAD: Atraumatic. Normocephalic. No temporal wasting, or tenderness. EYES: [place] conjunctiva. No petechia or hemorrhage. Pupils equal, round and reactive to light. Extraocular movements full and intact. No scleral icterus. No injection or drainage. EARS, NOSE AND THROAT: Nose without bleeding or purulent nasal discharge. No sinus tenderness. Mucous membranes pink and moist. No oral lesions noted. No exudate. No oral thrush. NECK: Trachea midline. Supple and not tender, no meningeal signs CARDIOVASCULAR: Regular rate and rhythm. No murmurs, rubs or gallops heard RESPIRATORY: Clear to auscultation. Breath sounds equal bilaterally. No rales , wheezing or rhonchi ABDOMEN: Soft, non-tender, nondistended. Bowel sounds present and normoactive. No guarding. No rebound. No organomegaly. EXTREMITIES: No clubbing, cyanosis, or edema. LUE - has intact dry dressing in place, no lymphangitis seen in his L arm. No calf tenderness. NEUROLOGICAL: Awake and alert. Cranial nerves grossly intact. Motor grossly within normal limits. PSYCHIATRIC: Normal affect, calm and cooperative. LINE: No evidence of infection Results - Labs CBC & Chem 7: 04/19/18 07:01 04/19/18 07:01 Labs: Laboratory Results - last 24 hr 04/19/18 04/19/18 07:01 07:01 WBC 10.9 RBC 4.15 L Hgb 13.0 Hct 37.6 L MCV 90.5 MCH 31.3 MCHC 34.6 RDW 14.2 Plt Count 272 MPV 8.2 Neut % (Auto) 67.1 Lymph % (Auto) 24.2 [place] % (Auto) 8.4 H Eos % (Auto) 0.1 Baso % (Auto) 0.2 Neut # (Auto) 7.3 Lymph # (Auto) 2.6 [place] # (Auto) 0.9 Eos # (Auto) 0.0 Baso # (Auto) 0.0 WBC Differential . Differential Comment Auto diff final Sodium 143 Potassium 3.7 Chloride 110 H Carbon Dioxide 25.5 Anion Gap 8 BUN 6 L Creatinine 0.78 Estimated GFR Greater than 89 Random Glucose 110 H Calcium 8.3 L Total Bilirubin 0.2 AST 15 ALT 19 Alkaline Phosphatase 86 Total Protein 7.1 Albumin 2.9 L - Imaging Finger X-Ray 04/18/18 01:01 CONCLUSION: Osteomyelitis involving the third finger middle phalanx Assessment and Plan - Plan Impression LMF infection, with osteomyelitis - S/P OR, C/S pending L hand cellulitis Recommendation Continue vancomycin Continue Zosyn Follow C/S and adjust Abx Baseline ESR ad CRP Follow path report Will determine course of Abx once workup is completed I will follow along with you Thank you for this consultation Explained plan to the patient
--- NOTE | 2018-04-19 15:42 | P.PNIM ---
Subjective Interval history: Follow up for left 3rd finger osteomyelitis. Patient seen and examined laying in bed, moving left upper extremity with left hand and wrist dressing dry and intact with Saulo wrap to the forearm. Patient denies any pain or shortness of breath. Patient denies any discomfort in the left hand. Patient denies any headache or dizziness, denies any chest pain or shortness of breath, denies any abdominal pain, nausea, vomiting, diarrhea or constipation. Patient denies any fever or chills. Patient stated doing well. Discussed with patient strict suicidal ideation, patient stated no she does not have any suicidal ideation. Patient stated it was the beginning of the year and he did not actually do it. Right now he denies any anxiety or depression or any intention to hurt himself. Physical Exam Vital signs: Vital Signs 04/18/18 15:30 04/18/18 16:00 04/18/18 16:30 Temperature Pulse Rate 57 L 56 L 67 Respiratory Rate 16 15 16 Blood Pressure 128/79 121/69 122/66 Pulse Oximetry 99 99 99 04/18/18 17:30 04/18/18 18:10 04/18/18 20:00 Temperature 97.8 F Pulse Rate 52 L 54 L 85 Respiratory Rate 16 16 19 Blood Pressure 116/59 L 122/61 143/68 H Pulse Oximetry 99 100 99 04/19/18 00:00 04/19/18 08:00 04/19/18 12:00 Temperature 97.2 F L 98 F 97.7 F Pulse Rate 63 60 56 L Respiratory Rate 18 15 16 Blood Pressure 130/66 130/83 141/70 H Pulse Oximetry 96 99 97 Intake & Output 04/18/18 04/19/18 04/19/18 18:59 06:59 18:59 Intake Total 2340 / 2340 3130 / 3130 715 / 715 Output Total 5 / 5 Balance 2335 / 2335 3130 / 3130 715 / 715 Weight 117.7 kg Intake: IV 1440 / 1440 2230 / 2230 715 / 715 NS Inj 1,000 ML @ 100 mls/hr IV 725 / 725 1000 / 1000 .CONT .Q10H [facility] Rx#:[id number] Zosyn 4.5 GM Premix 4.5 gm In 200 / 200 200 / 200 200 / 200 100 ml @ 200 mls/hr IV.SIG Q6H [facility] Rx#:[id number] Vancomycin Inj 1,500 MG In NS 515 / 515 1030 / 1030 515 / 515 Inj 500 ML @ 250 mls/hr IV.SIG Q8H [facility] Rx#:[id number] Oral 900 / 900 Anesthesia Amount 900 / 900 Output: Estimated Blood Loss 5 / 5 Other: # Voids 3 Date of Last Bowel Movement 04/17/18 Narrative: GENERAL: Well-developed, well-nourished, male in no apparent distress SKIN: Warm and dry. HEAD: Atraumatic. Normocephalic. EYES: Pupils equal and round. No scleral icterus. No injection or drainage. ENT: No nasal bleeding or discharge. Mucous membranes pink and moist. NECK: Trachea midline. No JVD. CARDIOVASCULAR: Regular rate and rhythm. RESPIRATORY: No accessory muscle use. Clear to auscultation. Breath sounds equal bilaterally. GASTROINTESTINAL: Abdomen soft, non-tender, nondistended. Hepatic and splenic margins not palpable. MUSCULOSKELETAL: Extremities without clubbing, cyanosis, No obvious deformities. Left hand and forearm dressed dry and intact, left middle finger dressed with gauze slight serosanguineous drainage noted, positive for sensation NEUROLOGICAL: Awake and alert. No obvious cranial nerve deficits. Motor grossly within normal limits. Five out of 5 muscle strength in the arms and legs except left hand with limited range of motion. Normal speech. PSYCHIATRIC: Appropriate mood and affect; insight and judgment normal. Results - Labs CBC & Chem 7: 04/19/18 07:01 04/19/18 07:01 Laboratory Results - last 24 hr 04/19/18 04/19/18 04/19/18 07:01 07:01 07:01 WBC 10.9 RBC 4.15 L Hgb 13.0 Hct 37.6 L MCV 90.5 MCH 31.3 MCHC 34.6 RDW 14.2 Plt Count 272 MPV 8.2 Neut % (Auto) 67.1 Lymph % (Auto) 24.2 [place] % (Auto) 8.4 H Eos % (Auto) 0.1 Baso % (Auto) 0.2 Neut # (Auto) 7.3 Lymph # (Auto) 2.6 [place] # (Auto) 0.9 Eos # (Auto) 0.0 Baso # (Auto) 0.0 WBC Differential . Differential Comment Auto diff final ESR 39 H Sodium 143 Potassium 3.7 Chloride 110 H Carbon Dioxide 25.5 Anion Gap 8 BUN 6 L Creatinine 0.78 Estimated GFR Greater than 89 Random Glucose 110 H Calcium 8.3 L Total Bilirubin 0.2 AST 15 ALT 19 Alkaline Phosphatase 86 Total Protein 7.1 Albumin 2.9 L Microbiology 04/18/18 13:30 Tissue - Finger Gram Stain - Final 04/18/18 13:30 Tissue - Finger Wound Culture - Preliminary S. aureus MRSA 04/18/18 01:10 Wound - Finger Gram Stain - Final 04/18/18 01:10 Wound - Finger Wound Culture - Preliminary S. aureus MRSA Assessment and Plan - Plan 27-year-old male with history of tobacco use, presents with a 2-week history of left third finger injury and worsening edema/warmth and drainage Acute left third finger / Osteomyelitis Left hand cellulitis -Left 3rd finger x-ray reviewed and shows osteomyelitis involving the third finger middle phalanx -Hand surgery consulted, Dr. Hollingsworth -S/p I&D by Dr. Hollingsworth 04/18 -Wound cultures from OR collected and pending -ID consulted: Appreciate recommendation -Left wound finger culture: S aureus MRSA, fungal culture pending, my co- bacterial culture pending, follow results -Continue on broad-spectrum antibiotics with IV Vanco/Zosyn Tobacco abuse, chronic -Cessation counseling provided. Hx Depression/Suicidal Ideations: patient denies suicidal thought at this time, stated this happened at the beginning of the year but he never did it Monitor mental status Follow-up with psychiatry as an outpatient DVT Prophylaxis: SCDs, ambulation Discharge Planning: Await antibiotic recommendations from infectious disease. Will need hand surgery and ID clearance prior to discharge.
[2018-04-20] MEDS: Piperacil/Tazo 4.5 GM Premix 4.5 GM/100 ML BAG IV.SIG SCH ×4 (02:37→20:04)
[2018-04-20] MEDS: Vancomycin Inj 1,500 MG in Sodium Chlor 0.9% Inj 500 ML IV.SIG SCH ×2 (02:37→10:23)
[2018-04-20] MEDS: Sod Chloride 0.9% Inj 1,000 ML IV.CONT SCH ×2 (04:55→22:24)
[2018-04-20 06:17] LABS: Baso % (Auto) 0.3 % (0.0-2.0); Eos # (Auto) 0.1 th/mm3 (0.0-0.4); Eos % (Auto) 0.8 % (0.0-4.0); Hematocrit 37.9 % (39.0-51.0); Hemoglobin 12.8 gm/dL (13.0-17.0); Lymph % (Auto) 60.2 % (9.0-44.0); Mean Corpuscular HGB Conc 33.7 % (32.0-36.0); Mean Corpuscular Hemoglobin 30.8 pg (27.0-34.0); Mean Corpuscular Volume 91.3 fL (80.0-100.0); Mean Platelet Volume 8.4 fL (7.0-11.0); Mono # (Auto) 0.6 th/mm3 (0.0-0.9); Mono % (Auto) 9.2 % (0.0-8.0); Neut % (Auto) 29.5 % (16.0-70.0); Platelet Count 270 th/mm3 (150-450); Red Blood Count 4.15 mil/mm3 (4.50-5.90); Red Cell Distribution Width 14.4 % (11.6-17.2); White Blood Count 6.6 th/mm3 (4.0-11.0)
[2018-04-20 06:38] LABS: Anion Gap 7 meq/L (5-15); Blood Urea Nitrogen 6 mg/dL (7-18); Calcium 8.4 mg/dL (8.5-10.1); Carbon Dioxide 25.8 meq/L (21.0-32.0); Chloride 110 meq/L (98-107); Glomerular Filtration Rate Greater Than 89 mL/min (>89); Glucose,Random 92 mg/dL (74-106); Potassium 3.8 meq/L (3.5-5.1); Sodium 143 meq/L (136-145)
[2018-04-20] MEDS ORDERED: Pharmacy Ordered Lab Info OTHER ONE (09:45)
--- NOTE | 2018-04-20 13:01 | P.PNIM ---
Subjective Interval history: Follow up for left 3rd finger osteomyelitis. Patient seen and examined, laying in bed, denies any pain or discomfort in the right hand or finger. Patient stated doing well family at bedside. Denies any headache or dizziness, denies any chest pain or shortness of breath, denies any abdominal pain, nausea, vomiting, diarrhea or constipation. Patient denies any fever or chills. Physical Exam Vital signs: Vital Signs 04/19/18 16:00 04/19/18 20:00 04/20/18 00:00 Temperature 97.7 F 98.1 F 97.1 F L Pulse Rate 52 L 72 52 L Respiratory Rate 16 17 17 Blood Pressure 156/93 H 153/94 H 162/91 H Pulse Oximetry 100 98 99 04/20/18 07:48 04/20/18 12:00 Temperature 97.4 F L 97.6 F Pulse Rate 58 L 62 Respiratory Rate 17 18 Blood Pressure 121/71 148/88 H Pulse Oximetry 99 99 Intake & Output 04/19/18 04/20/18 04/20/18 18:59 06:59 18:59 Intake Total 3683 / 3683 3730 / 3730 100 / 100 Balance 3683 / 3683 3730 / 3730 100 / 100 Weight 115.5 kg Intake: IV 1715 / 1715 2230 / 2230 100 / 100 NS Inj 1,000 ML @ 100 mls/hr IV 1000 / 1000 .CONT .Q10H INGRID Rx#:[id number] LR 1000 mL Inj 1,000 ML @ 30 1000 / 1000 mls/hr IV.SIG .Q24H INGRID Rx#: [id number] Zosyn 4.5 GM Premix 4.5 gm In 200 / 200 200 / 200 100 / 100 100 ml @ 200 mls/hr IV.SIG Q6H INGRID Rx#:[id number] Vancomycin Inj 1,500 MG In NS 515 / 515 1030 / 1030 Inj 500 ML @ 250 mls/hr IV.SIG Q8H INGRID Rx#:[id number] Oral 1967 / 1967 1500 / 1500 Other: # Voids 4 4 Date of Last Bowel Movement 04/19/18 # Bowel Movements 1 2 Narrative: GENERAL: Well-developed, well-nourished, male in no apparent distress SKIN: Warm and dry. HEAD: Atraumatic. Normocephalic. EYES: Pupils equal and round. No scleral icterus. No injection or drainage. ENT: No nasal bleeding or discharge. Mucous membranes pink and moist. NECK: Trachea midline. No JVD. CARDIOVASCULAR: Regular rate and rhythm. RESPIRATORY: No accessory muscle use. Clear to auscultation. Breath sounds equal bilaterally. GASTROINTESTINAL: Abdomen soft, non-tender, nondistended. Hepatic and splenic margins not palpable. MUSCULOSKELETAL: Extremities without clubbing, cyanosis, No obvious deformities. Left hand and forearm dressed dry and intact, left middle finger dressed with gauze slight serosanguineous drainage noted, positive for sensation and movement NEUROLOGICAL: Awake and alert. No obvious cranial nerve deficits. Motor grossly within normal limits. Five out of 5 muscle strength in the arms and legs except left hand with limited range of motion. Normal speech. PSYCHIATRIC: Appropriate mood and affect; insight and judgment normal. Results - Labs CBC & Chem 7: 04/20/18 05:24 04/20/18 05:24 Laboratory Results - last 24 hr 04/20/18 04/20/18 04/20/18 05:24 05:24 09:30 WBC 6.6 RBC 4.15 L Hgb 12.8 L Hct 37.9 L MCV 91.3 MCH 30.8 MCHC 33.7 RDW 14.4 Plt Count 270 MPV 8.4 Prelim Diff (Auto) Slide review pending Neut % (Auto) 29.5 Lymph % (Auto) 60.2 H [place] % (Auto) 9.2 H Eos % (Auto) 0.8 Baso % (Auto) 0.3 Neut # (Auto) 2.0 Lymph # (Auto) 4.0 [place] # (Auto) 0.6 Eos # (Auto) 0.1 Baso # (Auto) 0.0 WBC Differential . Diff Scan Auto diff confirmed Differential Comment . Sodium 143 Potassium 3.8 Chloride 110 H Carbon Dioxide 25.8 Anion Gap 7 BUN 6 L Creatinine 0.83 Estimated GFR Greater than 89 Random Glucose 92 Calcium 8.4 L Vancomycin Trough 27.0 H Microbiology 04/18/18 13:30 Tissue - Finger Fungal Smear - Final No fungal elements seen 04/18/18 13:30 Tissue - Finger Gram Stain - Final 04/18/18 13:30 Tissue - Finger Wound Culture - Final S. aureus MRSA 04/18/18 01:10 Wound - Finger Gram Stain - Final 04/18/18 01:10 Wound - Finger Wound Culture - Final S. aureus MRSA Assessment and Plan - Assessment (1) Osteomyelitis of finger of left hand Code(s): M86.9 - Osteomyelitis, unspecified Status: Acute - Plan 27-year-old male with history of tobacco use, presents with a 2-week history of left third finger injury and worsening edema/warmth and drainage Acute left third finger / Osteomyelitis Left hand cellulitis -Left 3rd finger x-ray reviewed and shows osteomyelitis involving the third finger middle phalanx -Hand surgery consulted, Dr. Hollingsworth -S/p I&D by Dr. Hollingsworth 04/18 -ID consulted: Appreciate recommendation -Left wound finger culture: S aureus MRSA, fungal culture pending, my co- bacterial culture pending, follow results -Continue on broad-spectrum antibiotics with IV Vanco/Zosyn per ID recommendation -Monitor and follow labs, CBC and BMP Tobacco abuse, chronic -Cessation counseling provided. Hx Depression/Suicidal Ideations: -patient denies any suicidal thought at this time, stated this happened when his child at the beginning of the year but he never did it -Monitor mental status DVT Prophylaxis: SCDs, ambulation Code Status: Full code Discussed Condition With: Patient and family, and nurse Discharge Planning: Discharge planning with antibiotics when cleared with surgical team and ID recommendation for antibiotic treatment
[2018-04-21] MEDS: Piperacil/Tazo 4.5 GM Premix 4.5 GM/100 ML BAG IV.SIG SCH ×3 (01:46→13:34)
[2018-04-21] MEDS: Sod Chloride 0.9% Inj 1,000 ML IV.CONT SCH ×3 (01:48→21:21)
[2018-04-21] MEDS: Vancomycin Inj 1,500 MG in Sodium Chlor 0.9% Inj 500 ML IV.SIG SCH ×2 (05:19→17:25)
[2018-04-21 09:39] VITALS: O2SAT 100
--- NOTE | 2018-04-21 11:44 | P.PNIM ---
Subjective Interval history: 27-year-old male presents with progressively worsening, severe and constant left third finger pain, swelling, erythema following an knife injury while cutting down a branch of a [place] 2 weeks ago. Patient denies any fevers, chills, chest pain, shortness of breath. Says he is otherwise feeling all right. 11-5 Follow up for left 3rd finger osteomyelitis. Patient seen around 10am this morning prior to going to OR. He reports continued left 3rd finger pain, swelling, warmth, and yellow purulent drainage. He does get some relief with pain medication. Denies fevers/chills. Denies any lymphangitis up the wrist/ arm. He denies any chest pain or shortness of breath. 11-6 Follow up for left 3rd finger osteomyelitis. Patient seen and examined laying in bed, moving left upper extremity with left hand and wrist dressing dry and intact with Saulo wrap to the forearm. Patient denies any pain or shortness of breath. Patient denies any discomfort in the left hand. Patient denies any headache or dizziness, denies any chest pain or shortness of breath, denies any abdominal pain, nausea, vomiting, diarrhea or constipation. Patient denies any fever or chills. Patient stated doing well. Discussed with patient strict suicidal ideation, patient stated no she does not have any suicidal ideation. Patient stated it was the beginning of the year and he did not actually do it. Right now he denies any anxiety or depression or any intention to hurt himself. 11-7 Follow up for left 3rd finger osteomyelitis. Patient seen and examined, laying in bed, denies any pain or discomfort in the right hand or finger. Patient stated doing well family at bedside. Denies any headache or dizziness, denies any chest pain or shortness of breath, denies any abdominal pain, nausea, vomiting, diarrhea or constipation. Patient denies any fever or chills. 11-8 AWAIT HAND AND ID CLEARANCE FOR DC NO NEW COMPLAINTS Physical Exam Vital signs: Vital Signs 04/20/18 12:00 04/20/18 16:00 04/20/18 20:00 Temperature 97.6 F 97.7 F 98.4 F Pulse Rate 62 74 59 L Respiratory Rate 18 19 18 Blood Pressure 148/88 H 130/93 H 152/79 H Pulse Oximetry 99 98 96 04/21/18 00:00 04/21/18 08:00 Temperature 98.0 F 97.8 F Pulse Rate 52 L 60 Respiratory Rate 18 18 Blood Pressure 152/79 H 128/76 Pulse Oximetry 96 100 Intake & Output 04/20/18 04/21/18 04/21/18 18:59 06:59 18:59 Intake Total 2915 / 2915 200 / 200 855 / 855 Balance 2915 / 2915 200 / 200 855 / 855 Weight 106.5 kg Intake: IV 1715 / 1715 200 / 200 615 / 615 NS Inj 1,000 ML @ 100 mls/hr IV 1000 / 1000 .CONT .Q10H INGRID Rx#:[id number] Zosyn 4.5 GM Premix 4.5 gm In 200 / 200 200 / 200 100 / 100 100 ml @ 200 mls/hr IV.SIG Q6H INGRID Rx#:[id number] Vancomycin Inj 1,500 MG In NS 515 / 515 515 / 515 Inj 500 ML @ 250 mls/hr IV.SIG Q12H INGRID Rx#:[id number] Oral 1200 / 1200 240 / 240 Other: # Voids 5 1 # Bowel Movements 2 Narrative: GENERAL: Well-developed, well-nourished, male in no apparent distress SKIN: Warm and dry. HEAD: Atraumatic. Normocephalic. EYES: Pupils equal and round. No scleral icterus. No injection or drainage. ENT: No nasal bleeding or discharge. Mucous membranes pink and moist. NECK: Trachea midline. No JVD. CARDIOVASCULAR: Regular rate and rhythm. RESPIRATORY: No accessory muscle use. Clear to auscultation. Breath sounds equal bilaterally. GASTROINTESTINAL: Abdomen soft, non-tender, nondistended. Hepatic and splenic margins not palpable. MUSCULOSKELETAL: Extremities without clubbing, cyanosis, No obvious deformities. Left hand and forearm dressed dry and intact, left middle finger dressed with gauze slight serosanguineous drainage noted, positive for sensation and movement NEUROLOGICAL: Awake and alert. No obvious cranial nerve deficits. Motor grossly within normal limits. Five out of 5 muscle strength in the arms and legs except left hand with limited range of motion. Normal speech. PSYCHIATRIC: Appropriate mood and affect; insight and judgment normal. Results - Labs CBC & Chem 7: 04/20/18 05:24 04/20/18 05:24 Microbiology 04/18/18 13:30 Tissue - Finger Acid Fast Bacilli Smear - Final No acid fast bacilli seen 04/18/18 13:30 Tissue - Finger Fungal Smear - Final No fungal elements seen 04/18/18 13:30 Tissue - Finger Gram Stain - Final 04/18/18 13:30 Tissue - Finger Wound Culture - Final S. aureus MRSA 04/18/18 01:10 Wound - Finger Gram Stain - Final 04/18/18 01:10 Wound - Finger Wound Culture - Final S. aureus MRSA - Procedures 04/18/2018 PREOPERATIVE DIAGNOSIS: Osteomyelitis of the middle phalanx of the left third finger. POSTOPERATIVE DIAGNOSIS: Osteomyelitis of the middle phalanx of the left third finger. PROCEDURE PERFORMED: Incision and debridement of the skin, subcutaneous tissue, and bone with excisional debridement of the bone of the left middle finger. ANESTHESIA: General. SURGEON: Britney Hollingsworth MD INDICATIONS: A 27-year-old male with injury to his left middle finger, 2 weeks ago. The patient did not seek medical attention. He apparently was cutting a branch from a tree and the blade closed on his finger. The patient was noted to have complete destruction of the head of the middle phalanx of his left third finger. At the completion of the procedure, all of the bone, which apparently had been involved was removed. TOURNIQUET TIME: 28 minutes. DESCRIPTION OF PROCEDURE: The patient was seen preoperatively, where the site and side were identified and marked. The patient was then taken to the operating room and placed in a supine position. His identity was checked against the armband and consent form signed, and site confirmed. Timeout called prior to beginning the procedure. The left upper extremity was prepped with Hibiclens and draped in the usual sterile fashion. The finger was tourniqueted by using a sterile finger from a sterile glove, which was placed on the finger and rolled up. A #15 blade was then used to make an excision of all the infected tissue at the edges of the wound. The wound did traverse the DIP joint. Once the skin was removed, it was noted that the extensor tendon was completely destroyed in that area. Bits of bone fragments were present and these were removed, some was sent for pathology, some was sent for culture. Under loupe magnification, the soft tissue, ligaments, and bone, which were grossly infected were removed. The shaft of the middle phalanx was debrided of any type of infected material. Once the bone was strong and there was no evidence of visceral involvement, and all of the soft tissue which was involvement was removed, the wound was copiously irrigated with saline. The flexor tendon to the distal phalanx was intact. Both collateral ligaments appeared to have been destroyed and the finger is totally destabilized distal to the shaft of the middle phalanx. After copious irrigation, the wound was packed with 1/2 inch iodoform packing along with Telfa, Adaptic, straight Betadine, and a dry dressing. A palmarly-based splint from the fingertips to the mid forearm was placed in the position of function. Bupivacaine 0.25% plain was injected at the beginning of the procedure, 9 mL were used. Once the dressing was then placed and the splint had hardened, the patient was taken from the operating room to the recovery room in satisfactory condition, having tolerated the procedure well. Britney Hollingsworth MD Assessment and Plan - Assessment (1) Osteomyelitis of finger of left hand Code(s): M86.9 - Osteomyelitis, unspecified Status: Acute - Plan 27-year-old male with history of tobacco use, presents with a 2-week history of left third finger injury and worsening edema/warmth and drainage Acute left third finger / Osteomyelitis Left hand cellulitis -Left 3rd finger x-ray reviewed and shows osteomyelitis involving the third finger middle phalanx -Hand surgery consulted, Dr. Hollingsworth -S/p I&D by Dr. Hollingsworth 04/18 -ID consulted: Appreciate recommendation -Left wound finger culture: S aureus MRSA, fungal culture pending, my co- bacterial culture pending, follow results -Continue on broad-spectrum antibiotics with IV Vanco/Zosyn per ID recommendation -Monitor and follow labs, CBC and BMP ANTIBIOTICS PER ID AND HAND SURGERY Tobacco abuse, chronic -Cessation counseling provided. Hx Depression/Suicidal Ideations: -patient denies any suicidal thought at this time, stated this happened when his child at the beginning of the year but he never did it -Monitor mental status DVT Prophylaxis: SCDs, ambulation Code Status: FULL CODE Discussed Condition With: RN AND PT AND FAMILY AND CM Discharge Planning: ONCE CLEARED BY ID AND HAND
--- NOTE | 2018-04-21 15:46 | P.PNID ---
Subjective Remarks: Patient is 27-year-old right-hand dominant black male presents emergency department with complaints of an infection of his left middle finger after cutting it with a knife 2 weeks ago. He states he was using a knife and accidentally cut the top of his left middle finger. The wound healed over and he was having trouble flexing the tip of that finger. Last week it started getting swollen and red, and the area where he had a cut started having some purulent drainage. He denies any fever chills or sweats. He has not had any other symptoms as far as GI or any urinary complaints. As per record his last tetanus shot was over 5 years ago. He has not seen any redness going up his arm. Since admission he has not been febrile. Evaluation revealed possible osteomyelitis. Patient was seen by hand surgery, and he underwent surgery and intraoperative findings are suggestive of osteomyelitis. Intraoperative cultures are currently pending. Patient is on Zosyn and vancomycin. Infectious disease consultation has been requested to assist with evaluation and treatment of his osteomyelitis. Notes reviewed No fever No complaints C/S MRSA Path C/W osteo ESR 39 Antibiotics: Vancomycin Zosyn Lines: PIV Past Medical History: Fracture of ankle Fracture of wrist Patient denies medical problems Status post ORIF of fracture of ankle History of right knee surgery Allergies/Adverse Reactions: Allergies No Known Allergies Allergy (Verified 04/18/18 00:50) Objective Vital Signs 04/20/18 16:00 04/20/18 20:00 04/21/18 00:00 Temperature 97.7 F 98.4 F 98.0 F Pulse Rate 74 59 L 52 L Respiratory Rate 19 18 18 Blood Pressure 130/93 H 152/79 H 152/79 H Pulse Oximetry 98 96 96 04/21/18 08:00 04/21/18 12:00 Temperature 97.8 F 98.2 F Pulse Rate 60 56 L Respiratory Rate 18 18 Blood Pressure 128/76 119/65 Pulse Oximetry 100 100 Intake & Output 04/20/18 04/21/18 04/21/18 18:59 06:59 18:59 Intake Total 2915 / 2915 200 / 200 955 / 955 Balance 2915 / 2915 200 / 200 955 / 955 Weight 106.5 kg Intake: IV 1715 / 1715 200 / 200 715 / 715 NS Inj 1,000 ML @ 100 mls/hr IV 1000 / 1000 .CONT .Q10H INGRID Rx#:[id number] Zosyn 4.5 GM Premix 4.5 gm In 200 / 200 200 / 200 200 / 200 100 ml @ 200 mls/hr IV.SIG Q6H INGRID Rx#:[id number] Vancomycin Inj 1,500 MG In NS 515 / 515 515 / 515 Inj 500 ML @ 250 mls/hr IV.SIG Q12H INGRID Rx#:[id number] Oral 1200 / 1200 240 / 240 Other: # Voids 5 1 # Bowel Movements 2 04/18/18 13:30 Tissue - Finger Acid Fast Bacilli Smear - Final No acid fast bacilli seen 04/18/18 13:30 Tissue - Finger Mycobacterial Culture - Pending 04/18/18 13:30 Tissue - Finger Fungal Smear - Final No fungal elements seen 04/18/18 13:30 Tissue - Finger Fungal Culture - Pending 04/18/18 13:30 Tissue - Finger Gram Stain - Final 04/18/18 13:30 Tissue - Finger Wound Culture - Final S. aureus MRSA 04/18/18 01:10 Wound - Finger Gram Stain - Final 04/18/18 01:10 Wound - Finger Wound Culture - Final S. aureus MRSA Lab - Hematology Results 04/20/18 05:24 WBC 6.6 RBC 4.15 L Hgb 12.8 L Hct 37.9 L MCV 91.3 MCH 30.8 MCHC 33.7 RDW 14.4 Plt Count 270 MPV 8.4 Prelim Diff (Auto) Slide review pending Neut % (Auto) 29.5 Lymph % (Auto) 60.2 H [place] % (Auto) 9.2 H Eos % (Auto) 0.8 Baso % (Auto) 0.3 Neut # (Auto) 2.0 Lymph # (Auto) 4.0 [place] # (Auto) 0.6 Eos # (Auto) 0.1 Baso # (Auto) 0.0 WBC Differential . Diff Scan Auto diff confirmed Differential Comment . Lab - Chemistry Results 04/20/18 05:24 Sodium 143 Potassium 3.8 Chloride 110 H Carbon Dioxide 25.8 Anion Gap 7 BUN 6 L Creatinine 0.83 Estimated GFR Greater than 89 Random Glucose 92 Calcium 8.4 L Imaging: ITS Impressions Finger X-Ray 04/18/18 01:01 CONCLUSION: Osteomyelitis involving the third finger middle phalanx Physical Exam: GENERAL: awake and alert, not in respiratory distress. SKIN: Cool and dry. No generalized rash HEAD: Atraumatic. Normocephalic. No temporal wasting, or tenderness. EYES: [place] conjunctiva. No petechia or hemorrhage. No scleral icterus. No injection or drainage. EARS, NOSE AND THROAT: Mucous membranes pink and moist. No oral lesions noted. No exudate. No oral thrush. NECK: Trachea midline. Supple and not tender, no meningeal signs CARDIOVASCULAR: Regular rate and rhythm. No murmurs, rubs or gallops heard RESPIRATORY: Clear to auscultation. Breath sounds equal bilaterally. No rales , wheezing or rhonchi ABDOMEN: Soft, non-tender, nondistended. Bowel sounds present and normoactive. No guarding. No rebound. No organomegaly. EXTREMITIES: No clubbing, cyanosis, or edema. LUE - LMF has incision with packing, no purulence seen, mildly swollen, not red. NEUROLOGICAL: Non-focal. PSYCHIATRIC: Normal affect, calm and cooperative. LINE: No evidence of infection Assessment and Plan - Plan Impression LMF infection, with osteomyelitis - S/P OR, C/S pending L hand cellulitis Recommendation Continue vancomycin Stop Zosyn Will need course of Rx for osteomyelitis D/W CM Explained plan to the patient
--- NOTE | 2018-04-21 18:10 | P.PNPLA ---
Subjective Remarks: The patient reports that he has no pain. Objective Vital Signs: Vital Signs - 24 hr 04/20/18 20:00 04/21/18 00:00 04/21/18 08:00 Temperature 98.4 F 98.0 F 97.8 F Pulse Rate 59 L 52 L 60 Respiratory Rate 18 18 18 Blood Pressure 152/79 H 152/79 H 128/76 Pulse Oximetry 96 96 100 04/21/18 12:00 04/21/18 16:00 Temperature 98.2 F 97.7 F Pulse Rate 56 L 70 Respiratory Rate 18 20 Blood Pressure 119/65 132/61 Pulse Oximetry 100 100 Intake & Output 04/19/18 04/20/18 04/21/18 04/22/18 06:59 06:59 06:59 06:59 Intake Total 5470 / 5470 7413 / 7413 3115 / 3115 955 / 955 Output Total 5 / 5 Balance 5465 / 5465 7413 / 7413 3115 / 3115 955 / 955 Weight 117.7 kg 115.5 kg 106.5 kg Laboratory Results: Microbiology 04/18/18 13:30 Acid Fast Bacilli Smear - Final Tissue - Finger No acid fast bacilli seen Result Diagrams: 04/20/18 05:24 04/20/18 05:24 Exam Findings: The wound is healing in well. There is no purulent drainage. The adjacent tissue is clear without signs of cellulitis. Assessment and Plan - Plan Impression: The finger is healing well. Plan: The patient is cleared for discharge by Hand Surgery. He should follow up in my clinic next week. He is to continue on the same wound care at home.
[2018-04-22] MEDS: Vancomycin Inj 1,500 MG in Sodium Chlor 0.9% Inj 500 ML IV.SIG SCH (05:57)
[2018-04-22] MEDS: Sod Chloride 0.9% Inj 1,000 ML IV.CONT SCH (05:57)
[2018-04-22 07:35] LABS: Baso % (Auto) 0.4 % (0.0-2.0); Eos # (Auto) 0.1 th/mm3 (0.0-0.4); Eos % (Auto) 1.4 % (0.0-4.0); Hematocrit 42.1 % (39.0-51.0); Hemoglobin 14.6 gm/dL (13.0-17.0); Lymph # (Auto) 3.1 th/mm3 (1.0-4.8); Mean Corpuscular HGB Conc 34.7 % (32.0-36.0); Mean Corpuscular Hemoglobin 31.3 pg (27.0-34.0); Mean Corpuscular Volume 90.1 fL (80.0-100.0); Mean Platelet Volume 8.2 fL (7.0-11.0); Mono # (Auto) 0.5 th/mm3 (0.0-0.9); Mono % (Auto) 8.8 % (0.0-8.0); Neut # (Auto) 2.1 th/mm3 (1.8-7.7); Neut % (Auto) 35.4 % (16.0-70.0); Platelet Count 304 th/mm3 (150-450); Red Blood Count 4.67 mil/mm3 (4.50-5.90); Red Cell Distribution Width 14.2 % (11.6-17.2); White Blood Count 5.8 th/mm3 (4.0-11.0)
[2018-04-22 08:04] VITALS: BP 169/97; PULSE 46; RESP 18; TEMP 97.5
[2018-04-22 08:13] LABS: Albumin 3.3 g/dL (3.4-5.0); Anion Gap 6 meq/L (5-15); Aspartate Aminotransferase 12 U/L (15-37); Blood Urea Nitrogen 8 mg/dL (7-18); Calcium 8.9 mg/dL (8.5-10.1); Carbon Dioxide 26.9 meq/L (21.0-32.0); Chloride 108 meq/L (98-107); Glomerular Filtration Rate Greater Than 89 mL/min (>89); Glucose,Random 82 mg/dL (74-106); Magnesium 1.9 mg/dL (1.5-2.5); Potassium 3.6 meq/L (3.5-5.1); Sodium 141 meq/L (136-145)
[2018-04-22 08:22] LABS: Alanine Aminotransferase 23 U/L (12-78); Alkaline Phosphatase 88 U/L (45-117); Free T4 (Free Thyroxine) 1.36 ng/dL (0.76-1.46); Phosphorus 4.5 mg/dL (2.5-4.9)
--- NOTE | 2018-04-22 10:45 | P.DCO ---
Post Hospital Infusion Therapy - Infusion Therapy Location of Infusion Therapy: Ambulatory Infusion Therapy Order - Patient Information Patient Weight: 107 kg - Diagnosis (1) Osteomyelitis of finger of left hand Code(s): M86.9 - Osteomyelitis, unspecified (2) MRSA (methicillin resistant Staphylococcus aureus) infection Code(s): A49.02 - Methicillin resistant Staphylococcus aureus infection, unspecified site - Administer Medication Daptomycin Additional Dosing Instructions: Daptomycin 850 mg IV daily Stop Treatment: 05/29/18 - Additional Information Venous Access: PICC Line Additional Instructions: [x] Peripheral flush and dressing changes per protocol [x] Implanted port and central line servicer: * Implanted port: 10 ml Normal Saline followed by 5 ml Heparin 100 units/ml Heparin flush after each use and monthly to maintain. [] May leave port accessed during therapy. [] May leave peripheral site accessed for duration of therapy. [x] If patient has SOB or respiratory distress, check oxygen saturation. If less than 90% or clinical signs of respiratory distress, administer oxygen at 2 L/min. via nasal cannula and notify physician. [x] Anaphylaxis/Reaction orders: * Stop infusion. * Keep IV line open with saline flush. * Notify physician. * Monitor vital signs every 15 minutes until symptoms resolve. * Check Oxygen saturation; Oxygen at 2 L/min. via nasal cannula if less than 90% or clinical signs of respiratory distress. * Administer diphenhydramine (Benadryl) 25 mg IV STAT, (unless patient has received as pre-med). May repeat once, if necessary. * Solu-Cortef 250 mg IVP over 30-60 seconds, use 100 mg vials for each dissolution. * Epinephrine (1mg/1 ml) 0.3 mg subcutaneously or IVP now with any signs of respiratory distress. * Check with physician for new additional pre-med orders if patient is re- challenged or re-treated. [x] May remove PICC line when treatment complete, after confirming with Physician. [x] If the patient is admitted to the hospital, the ED, or transferred via [facility] , complete transfer form including medication reconciliation order sheet. Weekly Labs: CBC w/diff, Creatinine, Serum CK Levels ([facility] every Wednesday - copy to me and Dr Clancy) - Patient Information Allergies No Known Allergies Allergy (Verified 04/18/18 00:50)
--- NOTE | 2018-04-22 10:47 | P.PNID ---
Subjective Remarks: Patient is 27-year-old right-hand dominant black male presents emergency department with complaints of an infection of his left middle finger after cutting it with a knife 2 weeks ago. He states he was using a knife and accidentally cut the top of his left middle finger. The wound healed over and he was having trouble flexing the tip of that finger. Last week it started getting swollen and red, and the area where he had a cut started having some purulent drainage. He denies any fever chills or sweats. He has not had any other symptoms as far as GI or any urinary complaints. As per record his last tetanus shot was over 5 years ago. He has not seen any redness going up his arm. Since admission he has not been febrile. Evaluation revealed possible osteomyelitis. Patient was seen by hand surgery, and he underwent surgery and intraoperative findings are suggestive of osteomyelitis. Intraoperative cultures are currently pending. Patient is on Zosyn and vancomycin. Infectious disease consultation has been requested to assist with evaluation and treatment of his osteomyelitis. Notes reviewed No fever No complaints Hand surgery notes reviewed C/S MRSA Path C/W osteo ESR 39 Antibiotics: Vancomycin Lines: PIV Past Medical History: Fracture of ankle Fracture of wrist Patient denies medical problems Status post ORIF of fracture of ankle History of right knee surgery Allergies/Adverse Reactions: Allergies No Known Allergies Allergy (Verified 04/18/18 00:50) Objective Vital Signs 04/21/18 12:00 04/21/18 16:00 04/21/18 20:00 Temperature 98.2 F 97.7 F 98.2 F Pulse Rate 56 L 70 63 Respiratory Rate 18 20 16 Blood Pressure 119/65 132/61 141/77 H Pulse Oximetry 100 100 100 04/22/18 00:00 04/22/18 08:00 Temperature 98.0 F 97.5 F L Pulse Rate 59 L 46 L Respiratory Rate 16 18 Blood Pressure 142/70 H 169/97 H Pulse Oximetry 100 100 Intake & Output 04/21/18 04/22/18 04/22/18 18:59 06:59 18:59 Intake Total 955 / 955 2515 / 2515 Balance 955 / 955 2515 / 2515 Weight 107 kg 107 kg Intake: IV 715 / 715 2515 / 2515 NS Inj 1,000 ML @ 100 mls/hr IV 1999 .CONT .Q10H INGRID Rx#:[id number] Zosyn 4.5 GM Premix 4.5 gm In 200 / 200 100 ml @ 200 mls/hr IV.SIG Q6H INGRID Rx#:[id number] Vancomycin Inj 1,500 MG In NS 515 / 515 515 / 515 Inj 500 ML @ 250 mls/hr IV.SIG Q12H INGRID Rx#:[id number] Oral 240 / 240 Other: # Voids 7 1 # Bowel Movements 2 1 04/18/18 13:30 Tissue - Finger Acid Fast Bacilli Smear - Final No acid fast bacilli seen 04/18/18 13:30 Tissue - Finger Mycobacterial Culture - Pending 04/18/18 13:30 Tissue - Finger Fungal Smear - Final No fungal elements seen 04/18/18 13:30 Tissue - Finger Fungal Culture - Pending 04/18/18 13:30 Tissue - Finger Gram Stain - Final 04/18/18 13:30 Tissue - Finger Wound Culture - Final S. aureus MRSA 04/18/18 01:10 Wound - Finger Gram Stain - Final 04/18/18 01:10 Wound - Finger Wound Culture - Final S. aureus MRSA Lab - Hematology Results 04/22/18 05:56 WBC 5.8 RBC 4.67 Hgb 14.6 Hct 42.1 MCV 90.1 MCH 31.3 MCHC 34.7 RDW 14.2 Plt Count 304 MPV 8.2 Neut % (Auto) 35.4 Lymph % (Auto) 54.0 H [place] % (Auto) 8.8 H Eos % (Auto) 1.4 Baso % (Auto) 0.4 Neut # (Auto) 2.1 Lymph # (Auto) 3.1 [place] # (Auto) 0.5 Eos # (Auto) 0.1 Baso # (Auto) 0.0 WBC Differential . Differential Comment Auto diff final Lab - Chemistry Results 04/22/18 05:56 Sodium 141 Potassium 3.6 Chloride 108 H Carbon Dioxide 26.9 Anion Gap 6 BUN 8 Creatinine 0.79 Estimated GFR Greater than 89 Random Glucose 82 Calcium 8.9 Phosphorus 4.5 Magnesium 1.9 Total Bilirubin 0.3 AST 12 L ALT 23 Alkaline Phosphatase 88 C-Reactive Protein Less than 0.29 Total Protein 8.0 D Albumin 3.3 L TSH 1.510 Free T4 1.36 Imaging: ITS Impressions Finger X-Ray 11/05/18 01:01 CONCLUSION: Osteomyelitis involving the third finger middle phalanx Physical Exam: GENERAL: awake and alert, not in respiratory distress. SKIN: Cool and dry. No generalized rash HEAD: Atraumatic. Normocephalic. No temporal wasting, or tenderness. EYES: [place] conjunctiva. No petechia or hemorrhage. No scleral icterus. No injection or drainage. EARS, NOSE AND THROAT: Mucous membranes pink and moist. No oral lesions noted. No exudate. No oral thrush. NECK: Trachea midline. Supple and not tender, no meningeal signs CARDIOVASCULAR: Regular rate and rhythm. No murmurs, rubs or gallops heard RESPIRATORY: Clear to auscultation. Breath sounds equal bilaterally. No rales , wheezing or rhonchi ABDOMEN: Soft, non-tender, nondistended. Bowel sounds present and normoactive. No guarding. No rebound. No organomegaly. EXTREMITIES: No clubbing, cyanosis, or edema. LUE - LMF has incision with packing, no purulence seen, mildly swollen, not red. NEUROLOGICAL: Non-focal. PSYCHIATRIC: Normal affect, calm and cooperative. LINE: No evidence of infection Assessment and Plan (1) Osteomyelitis of finger of left hand Status: Acute Code(s): M86.9 - Osteomyelitis, unspecified (2) MRSA (methicillin resistant Staphylococcus aureus) infection Status: Acute Code(s): A49.02 - Methicillin resistant Staphylococcus aureus infection, unspecified site - Plan Impression LMF infection, with osteomyelitis - S/P OR, C/S pending L hand cellulitis Recommendation Will use Cubicin to complete osteo Rx PICC D/C once arrangements made Rx at outpatient infusion clinic Abx form filled out Will refer to Dr Clancy for fup Spoke with CM D/W Dr Adan ([facility]) Explained plan to the patient
--- NOTE | 2018-04-22 10:52 | P.PNIM ---
Subjective Interval history: 27-year-old male presents with progressively worsening, severe and constant left third finger pain, swelling, erythema following an knife injury while cutting down a branch of a [place] 2 weeks ago. Patient denies any fevers, chills, chest pain, shortness of breath. Says he is otherwise feeling all right. 11-5 Follow up for left 3rd finger osteomyelitis. Patient seen around 10am this morning prior to going to OR. He reports continued left 3rd finger pain, swelling, warmth, and yellow purulent drainage. He does get some relief with pain medication. Denies fevers/chills. Denies any lymphangitis up the wrist/ arm. He denies any chest pain or shortness of breath. 11-6 Follow up for left 3rd finger osteomyelitis. Patient seen and examined laying in bed, moving left upper extremity with left hand and wrist dressing dry and intact with Saulo wrap to the forearm. Patient denies any pain or shortness of breath. Patient denies any discomfort in the left hand. Patient denies any headache or dizziness, denies any chest pain or shortness of breath, denies any abdominal pain, nausea, vomiting, diarrhea or constipation. Patient denies any fever or chills. Patient stated doing well. Discussed with patient strict suicidal ideation, patient stated no she does not have any suicidal ideation. Patient stated it was the beginning of the year and he did not actually do it. Right now he denies any anxiety or depression or any intention to hurt himself. 11-7 Follow up for left 3rd finger osteomyelitis. Patient seen and examined, laying in bed, denies any pain or discomfort in the right hand or finger. Patient stated doing well family at bedside. Denies any headache or dizziness, denies any chest pain or shortness of breath, denies any abdominal pain, nausea, vomiting, diarrhea or constipation. Patient denies any fever or chills. 11-8 AWAIT HAND AND ID CLEARANCE FOR DC NO NEW COMPLAINTS 11-9 CLEARED BY HAND SURGERY AND ID FOR DISCHARGE TO GO ON DAPTOMYCIN HERE AND DC LATER TODAY PICC LINE DC TO TO HOME Physical Exam Vital signs: Vital Signs 04/21/18 12:00 04/21/18 16:00 04/21/18 20:00 Temperature 98.2 F 97.7 F 98.2 F Pulse Rate 56 L 70 63 Respiratory Rate 18 20 16 Blood Pressure 119/65 132/61 141/77 H Pulse Oximetry 100 100 100 04/22/18 00:00 04/22/18 08:00 Temperature 98.0 F 97.5 F L Pulse Rate 59 L 46 L Respiratory Rate 16 18 Blood Pressure 142/70 H 169/97 H Pulse Oximetry 100 100 Intake & Output 04/21/18 04/22/18 04/22/18 18:59 06:59 18:59 Intake Total 955 / 955 2515 / 2515 Balance 955 / 955 2515 / 2515 Weight 107 kg 107 kg Intake: IV 715 / 715 2515 / 2515 NS Inj 1,000 ML @ 100 mls/hr IV 1999 / 1999 .CONT .Q10H INGRID Rx#:[id number] Zosyn 4.5 GM Premix 4.5 gm In 200 / 200 100 ml @ 200 mls/hr IV.SIG Q6H INGRID Rx#:[id number] Vancomycin Inj 1,500 MG In NS 515 / 515 515 / 515 Inj 500 ML @ 250 mls/hr IV.SIG Q12H INGRID Rx#:[id number] Oral 240 / 240 Other: # Voids 7 1 # Bowel Movements 2 1 Narrative: GENERAL: Well-developed, well-nourished, male in no apparent distress SKIN: Warm and dry. HEAD: Atraumatic. Normocephalic. EYES: Pupils equal and round. No scleral icterus. No injection or drainage. ENT: No nasal bleeding or discharge. Mucous membranes pink and moist. NECK: Trachea midline. No JVD. CARDIOVASCULAR: Regular rate and rhythm. RESPIRATORY: No accessory muscle use. Clear to auscultation. Breath sounds equal bilaterally. GASTROINTESTINAL: Abdomen soft, non-tender, nondistended. Hepatic and splenic margins not palpable. MUSCULOSKELETAL: Extremities without clubbing, cyanosis, No obvious deformities. Left hand and forearm dressed dry and intact, left middle finger dressed with gauze slight serosanguineous drainage noted, positive for sensation and movement NEUROLOGICAL: Awake and alert. No obvious cranial nerve deficits. Motor grossly within normal limits. Five out of 5 muscle strength in the arms and legs except left hand with limited range of motion. Normal speech. PSYCHIATRIC: Appropriate mood and affect; insight and judgment normal. Results - Labs CBC & Chem 7: 04/22/18 05:56 04/22/18 05:56 Laboratory Results - last 24 hr 04/22/18 04/22/18 05:56 05:56 WBC 5.8 RBC 4.67 Hgb 14.6 Hct 42.1 MCV 90.1 MCH 31.3 MCHC 34.7 RDW 14.2 Plt Count 304 MPV 8.2 Neut % (Auto) 35.4 Lymph % (Auto) 54.0 H [place] % (Auto) 8.8 H Eos % (Auto) 1.4 Baso % (Auto) 0.4 Neut # (Auto) 2.1 Lymph # (Auto) 3.1 [place] # (Auto) 0.5 Eos # (Auto) 0.1 Baso # (Auto) 0.0 WBC Differential . Differential Comment Auto diff final Sodium 141 Potassium 3.6 Chloride 108 H Carbon Dioxide 26.9 Anion Gap 6 BUN 8 Creatinine 0.79 Estimated GFR Greater than 89 Random Glucose 82 Calcium 8.9 Phosphorus 4.5 Magnesium 1.9 Total Bilirubin 0.3 AST 12 L ALT 23 Alkaline Phosphatase 88 C-Reactive Protein Less than 0.29 Total Protein 8.0 D Albumin 3.3 L TSH 1.510 Free T4 1.36 - Imaging Finger X-Ray 04/18/18 01:01 CONCLUSION: Osteomyelitis involving the third finger middle phalanx - Procedures 04/18/2018 PREOPERATIVE DIAGNOSIS: Osteomyelitis of the middle phalanx of the left third finger. POSTOPERATIVE DIAGNOSIS: Osteomyelitis of the middle phalanx of the left third finger. PROCEDURE PERFORMED: Incision and debridement of the skin, subcutaneous tissue, and bone with excisional debridement of the bone of the left middle finger. ANESTHESIA: General. SURGEON: Britney Hollingsworth MD INDICATIONS: A 27-year-old male with injury to his left middle finger, 2 weeks ago. The patient did not seek medical attention. He apparently was cutting a branch from a tree and the blade closed on his finger. The patient was noted to have complete destruction of the head of the middle phalanx of his left third finger. At the completion of the procedure, all of the bone, which apparently had been involved was removed. TOURNIQUET TIME: 28 minutes. DESCRIPTION OF PROCEDURE: The patient was seen preoperatively, where the site and side were identified and marked. The patient was then taken to the operating room and placed in a supine position. His identity was checked against the armband and consent form signed, and site confirmed. Timeout called prior to beginning the procedure. The left upper extremity was prepped with Hibiclens and draped in the usual sterile fashion. The finger was tourniqueted by using a sterile finger from a sterile glove, which was placed on the finger and rolled up. A #15 blade was then used to make an excision of all the infected tissue at the edges of the wound. The wound did traverse the DIP joint. Once the skin was removed, it was noted that the extensor tendon was completely destroyed in that area. Bits of bone fragments were present and these were removed, some was sent for pathology, some was sent for culture. Under loupe magnification, the soft tissue, ligaments, and bone, which were grossly infected were removed. The shaft of the middle phalanx was debrided of any type of infected material. Once the bone was strong and there was no evidence of visceral involvement, and all of the soft tissue which was involvement was removed, the wound was copiously irrigated with saline. The flexor tendon to the distal phalanx was intact. Both collateral ligaments appeared to have been destroyed and the finger is totally destabilized distal to the shaft of the middle phalanx. After copious irrigation, the wound was packed with 1/2 inch iodoform packing along with Telfa, Adaptic, straight Betadine, and a dry dressing. A palmarly-based splint from the fingertips to the mid forearm was placed in the position of function. Bupivacaine 0.25% plain was injected at the beginning of the procedure, 9 mL were used. Once the dressing was then placed and the splint had hardened, the patient was taken from the operating room to the recovery room in satisfactory condition, having tolerated the procedure well. Britney Hollingsworth MD Assessment and Plan - Assessment (1) Osteomyelitis of finger of left hand Code(s): M86.9 - Osteomyelitis, unspecified Status: Acute - Plan 27-year-old male with history of tobacco use, presents with a 2-week history of left third finger injury and worsening edema/warmth and drainage Acute left third finger / Osteomyelitis Left hand cellulitis -Left 3rd finger x-ray reviewed and shows osteomyelitis involving the third finger middle phalanx -Hand surgery consulted, Dr. Hollingsworth -S/p I&D by Dr. Hollingsworth 04/18 -ID consulted: Appreciate recommendation -Left wound finger culture: S aureus MRSA, fungal culture pending, my co- bacterial culture pending, follow results -Continue on broad-spectrum antibiotics with IV Vanco/Zosyn per ID recommendation -Monitor and follow labs, CBC and BMP ANTIBIOTICS PER ID AND HAND SURGERY DC TO HOME TODAY WITH PICC LINE ON IV DAPTOMYCIN THROUGH [facility] Tobacco abuse, chronic -Cessation counseling provided. Hx Depression/Suicidal Ideations: -patient denies any suicidal thought at this time, stated this happened when his child at the beginning of the year but he never did it -Monitor mental status DVT Prophylaxis: SCDs, ambulation DC TO HOME TODAY Code Status: FULL CODE Discussed Condition With: RN AND PT AND CM AND ID AND FAMILY Discharge Planning: ONCE CLEARED BY ID AND HAND
--- NOTE | 2018-04-22 10:56 | P.DS ---
Date of admission: 04/18/18 02:01 Primary care physician: No Primary Care Physician Attending physician on discharge: Clifton Adan Anticipated date of discharge: 04/22/18 Brief History from admission: 27-year-old male presents with progressively worsening, severe and constant left third finger pain, swelling, erythema following an knife injury while cutting down a branch of a [place] 2 weeks ago. Patient denies any fevers, chills, chest pain, shortness of breath. Says he is otherwise feeling all right. Patient update on day of discharge: 27-year-old male presents with progressively worsening, severe and constant left third finger pain, swelling, erythema following an knife injury while cutting down a branch of a [place] 2 weeks ago. Patient denies any fevers, chills, chest pain, shortness of breath. Says he is otherwise feeling all right. 11-5 Follow up for left 3rd finger osteomyelitis. Patient seen around 10am this morning prior to going to OR. He reports continued left 3rd finger pain, swelling, warmth, and yellow purulent drainage. He does get some relief with pain medication. Denies fevers/chills. Denies any lymphangitis up the wrist/ arm. He denies any chest pain or shortness of breath. 11-6 Follow up for left 3rd finger osteomyelitis. Patient seen and examined laying in bed, moving left upper extremity with left hand and wrist dressing dry and intact with Saulo wrap to the forearm. Patient denies any pain or shortness of breath. Patient denies any discomfort in the left hand. Patient denies any headache or dizziness, denies any chest pain or shortness of breath, denies any abdominal pain, nausea, vomiting, diarrhea or constipation. Patient denies any fever or chills. Patient stated doing well. Discussed with patient strict suicidal ideation, patient stated no she does not have any suicidal ideation. Patient stated it was the beginning of the year and he did not actually do it. Right now he denies any anxiety or depression or any intention to hurt himself. 11-7 Follow up for left 3rd finger osteomyelitis. Patient seen and examined, laying in bed, denies any pain or discomfort in the right hand or finger. Patient stated doing well family at bedside. Denies any headache or dizziness, denies any chest pain or shortness of breath, denies any abdominal pain, nausea, vomiting, diarrhea or constipation. Patient denies any fever or chills. 11-8 AWAIT HAND AND ID CLEARANCE FOR DC NO NEW COMPLAINTS 11-9 CLEARED BY HAND SURGERY AND ID FOR DISCHARGE TO GO ON DAPTOMYCIN HERE AND DC LATER TODAY PICC LINE DC TO TO HOME DS: Diagnosis - Discharge Diagnosis (1) Osteomyelitis of finger of left hand Status: Acute DS: Summary Hospital Course: 27-year-old male presents with progressively worsening, severe and constant left third finger pain, swelling, erythema following an knife injury while cutting down a branch of a [place] 2 weeks ago. Patient denies any fevers, chills, chest pain, shortness of breath. Says he is otherwise feeling all right. 11-5 Follow up for left 3rd finger osteomyelitis. Patient seen around 10am this morning prior to going to OR. He reports continued left 3rd finger pain, swelling, warmth, and yellow purulent drainage. He does get some relief with pain medication. Denies fevers/chills. Denies any lymphangitis up the wrist/ arm. He denies any chest pain or shortness of breath. 11-6 Follow up for left 3rd finger osteomyelitis. Patient seen and examined laying in bed, moving left upper extremity with left hand and wrist dressing dry and intact with Saulo wrap to the forearm. Patient denies any pain or shortness of breath. Patient denies any discomfort in the left hand. Patient denies any headache or dizziness, denies any chest pain or shortness of breath, denies any abdominal pain, nausea, vomiting, diarrhea or constipation. Patient denies any fever or chills. Patient stated doing well. Discussed with patient strict suicidal ideation, patient stated no she does not have any suicidal ideation. Patient stated it was the beginning of the year and he did not actually do it. Right now he denies any anxiety or depression or any intention to hurt himself. 11-7 Follow up for left 3rd finger osteomyelitis. Patient seen and examined, laying in bed, denies any pain or discomfort in the right hand or finger. Patient stated doing well family at bedside. Denies any headache or dizziness, denies any chest pain or shortness of breath, denies any abdominal pain, nausea, vomiting, diarrhea or constipation. Patient denies any fever or chills. 11-8 AWAIT HAND AND ID CLEARANCE FOR DC NO NEW COMPLAINTS 11-9 CLEARED BY HAND SURGERY AND ID FOR DISCHARGE TO GO ON DAPTOMYCIN HERE AND DC LATER TODAY PICC LINE DC TO TO HOME - Time Spent with Patient Total time spent providing and/or coordinating discharge services: Greater than 30 minutes - Quality: VTE Deep Vein Thrombosis/Pulmonary Embolism Present on Admission: No Exam Vital signs: Vital Signs 04/21/18 12:00 04/21/18 16:00 04/21/18 20:00 Temperature 98.2 F 97.7 F 98.2 F Pulse Rate 56 L 70 63 Respiratory Rate 18 20 16 Blood Pressure 119/65 132/61 141/77 H Pulse Oximetry 100 100 100 04/22/18 00:00 04/22/18 08:00 Temperature 98.0 F 97.5 F L Pulse Rate 59 L 46 L Respiratory Rate 16 18 Blood Pressure 142/70 H 169/97 H Pulse Oximetry 100 100 Intake & Output 04/21/18 04/22/18 04/22/18 18:59 06:59 18:59 Intake Total 955 / 955 2515 / 2515 Balance 955 / 955 2515 / 2515 Weight 107 kg 107 kg Intake: IV 715 / 715 2515 / 2515 NS Inj 1,000 ML @ 100 mls/hr IV 1999 / 1999 .CONT .Q10H INGRID Rx#:[id number] Zosyn 4.5 GM Premix 4.5 gm In 200 / 200 100 ml @ 200 mls/hr IV.SIG Q6H INGRID Rx#:[id number] Vancomycin Inj 1,500 MG In NS 515 / 515 515 / 515 Inj 500 ML @ 250 mls/hr IV.SIG Q12H INGRID Rx#:[id number] Oral 240 / 240 Other: # Voids 7 1 # Bowel Movements 2 1 Narrative: GENERAL: Well-developed, well-nourished, male in no apparent distress SKIN: Warm and dry. HEAD: Atraumatic. Normocephalic. EYES: Pupils equal and round. No scleral icterus. No injection or drainage. ENT: No nasal bleeding or discharge. Mucous membranes pink and moist. NECK: Trachea midline. No JVD. CARDIOVASCULAR: Regular rate and rhythm. RESPIRATORY: No accessory muscle use. Clear to auscultation. Breath sounds equal bilaterally. GASTROINTESTINAL: Abdomen soft, non-tender, nondistended. Hepatic and splenic margins not palpable. MUSCULOSKELETAL: Extremities without clubbing, cyanosis, No obvious deformities. Left hand and forearm dressed dry and intact, left middle finger dressed with gauze slight serosanguineous drainage noted, positive for sensation and movement NEUROLOGICAL: Awake and alert. No obvious cranial nerve deficits. Motor grossly within normal limits. Five out of 5 muscle strength in the arms and legs except left hand with limited range of motion. Normal speech. PSYCHIATRIC: Appropriate mood and affect; insight and judgment normal. Results Procedures completed during hospitalization: 04/18/2018 PREOPERATIVE DIAGNOSIS: Osteomyelitis of the middle phalanx of the left third finger. POSTOPERATIVE DIAGNOSIS: Osteomyelitis of the middle phalanx of the left third finger. PROCEDURE PERFORMED: Incision and debridement of the skin, subcutaneous tissue, and bone with excisional debridement of the bone of the left middle finger. ANESTHESIA: General. SURGEON: Britney Hollingsworth MD INDICATIONS: A 27-year-old male with injury to his left middle finger, 2 weeks ago. The patient did not seek medical attention. He apparently was cutting a branch from a tree and the blade closed on his finger. The patient was noted to have complete destruction of the head of the middle phalanx of his left third finger. At the completion of the procedure, all of the bone, which apparently had been involved was removed. TOURNIQUET TIME: 28 minutes. DESCRIPTION OF PROCEDURE: The patient was seen preoperatively, where the site and side were identified and marked. The patient was then taken to the operating room and placed in a supine position. His identity was checked against the armband and consent form signed, and site confirmed. Timeout called prior to beginning the procedure. The left upper extremity was prepped with Hibiclens and draped in the usual sterile fashion. The finger was tourniqueted by using a sterile finger from a sterile glove, which was placed on the finger and rolled up. A #15 blade was then used to make an excision of all the infected tissue at the edges of the wound. The wound did traverse the DIP joint. Once the skin was removed, it was noted that the extensor tendon was completely destroyed in that area. Bits of bone fragments were present and these were removed, some was sent for pathology, some was sent for culture. Under loupe magnification, the soft tissue, ligaments, and bone, which were grossly infected were removed. The shaft of the middle phalanx was debrided of any type of infected material. Once the bone was strong and there was no evidence of visceral involvement, and all of the soft tissue which was involvement was removed, the wound was copiously irrigated with saline. The flexor tendon to the distal phalanx was intact. Both collateral ligaments appeared to have been destroyed and the finger is totally destabilized distal to the shaft of the middle phalanx. After copious irrigation, the wound was packed with 1/2 inch iodoform packing along with Telfa, Adaptic, straight Betadine, and a dry dressing. A palmarly-based splint from the fingertips to the mid forearm was placed in the position of function. Bupivacaine 0.25% plain was injected at the beginning of the procedure, 9 mL were used. Once the dressing was then placed and the splint had hardened, the patient was taken from the operating room to the recovery room in satisfactory condition, having tolerated the procedure well. Britney Hollingsworth MD Completed studies during hospitalization: Pending at discharge 04/18/18 07:22 Surgical [PTH] Routine Labs on day of discharge: Labs from last 24 hours 04/22/18 04/22/18 04/22/18 05:56 05:56 05:56 WBC RBC Hgb Hct MCV MCH MCHC RDW Plt Count MPV Neut % (Auto) Lymph % (Auto) [place]aver % (Auto) Eos % (Auto) Baso % (Auto) Neut # (Auto) Lymph # (Auto) [place] # (Auto) Eos # (Auto) Baso # (Auto) WBC Differential Differential Comment Sodium 141 Potassium 3.6 Chloride 108 H Carbon Dioxide 26.9 Anion Gap 6 BUN 8 Creatinine 0.79 Estimated GFR Greater than 89 Random Glucose 82 Hemoglobin A1c Pending Calcium 8.9 Phosphorus 4.5 Magnesium 1.9 Total Bilirubin 0.3 AST 12 L ALT 23 Alkaline Phosphatase 88 Total Creatine Kinase Pending C-Reactive Protein Less than 0.29 Total Protein 8.0 D Albumin 3.3 L TSH 1.510 Free T4 1.36 04/22/18 05:56 WBC 5.8 RBC 4.67 Hgb 14.6 Hct 42.1 MCV 90.1 MCH 31.3 MCHC 34.7 RDW 14.2 Plt Count 304 MPV 8.2 Neut % (Auto) 35.4 Lymph % (Auto) 54.0 H Beaver % (Auto) 8.8 H Eos % (Auto) 1.4 Baso % (Auto) 0.4 Neut # (Auto) 2.1 Lymph # (Auto) 3.1 [place]aver # (Auto) 0.5 Eos # (Auto) 0.1 Baso # (Auto) 0.0 WBC Differential . Differential Comment Auto diff final Sodium Potassium Chloride Carbon Dioxide Anion Gap BUN Creatinine Estimated GFR Random Glucose Hemoglobin A1c Calcium Phosphorus Magnesium Total Bilirubin AST ALT Alkaline Phosphatase Total Creatine Kinase C-Reactive Protein Total Protein Albumin TSH Free T4 - Impressions ITS Impressions Finger X-Ray 04/18/18 01:01 CONCLUSION: Osteomyelitis involving the third finger middle phalanx Discharge Plan - Discharge Disposition Patient Disposition: 01 Discharge Home - Discharge Condition Condition: Stable - Discharge Order Discharge Orders: Discharge Order (Routine); Ordered 04/22/18 Ordered By: Clifton Adan Hand Surgery Clear for Discharge (Routine); Ordered 04/22/18 Ordered By: Britney Hollingsworth - Discharge Details Anticipated Discharge Date: 04/22/18 Discharge Comment: DC TO HOME AFTER HAS PICC LINE AND DAPTOMYCIN SET UP BY CM FOR DISCHARG - Physicians Team Primary Care Provider: Primary Care Physici,No Attending Provider: Clifton Adan Other Providers: Britney Hollingsworth MD ; Natalio Gresham MD ; Therese Uribe MD ; Marjan Robles MD
[2018-04-22] MEDS ORDERED: SODIUM CHLOR 0.9% IV.SIG SCH (12:00)
[2018-04-22] MEDS ORDERED: DAPTOMYCIN IV.SIG SCH (12:00)
[2018-04-22] MEDS ORDERED: Heparin Central Flush 100 UNIT/ML 5 ML Vial IV.FLUSH PRN (13:18)
[2018-04-22 16:09] LABS: Hemoglobin A1c 5.9 % (4.3-6.0)
[2018-04-23] MEDS ORDERED: Pharmacy Ordered Lab Info OTHER ONE (05:45)
[2018-04-23] MEDS ORDERED: Heparin Central Flush 100 UNIT/ML 5 ML Vial IV.FLUSH SCH (09:00)
== END 2018-04-22 14:40 | disposition home or self-care (01) ==
LOC: NEPD 00:48 → NEDA 02:01 → NEPHCDU 04:06 → N07 12:36
PROVIDERS: ADMIT Hospitalist; ATTEND Hospitalist